=== PATIENT | male | born 1945 | race Caucasian/White ===

== ENCOUNTER → 2017-01-20 | Outpatient (CLI) | payer OTHER ==
[~2017-01-20] MED LIST: 1-ME1LIQ OR; ALPR0.5T3 PO; AMLO2.5T PO; B COTAB7 PO; BACL20TA PO; CEPH500C3 PO; CHLO25 PO; DICY10CA12 PO; DICY10CA13 PO; DOCU100T9 PO; FLUO1CRE3 TOPICAL; FOLI-30 PO; FOLI400T30 PO; FURO20TA PO; GABA300C3 PO; GABA300C5 PO; HYDR-2952 PO; HYDR-3129 PO; HYDR-3366 PO; KCL20 PO; KPHOS250 PO; MAGN400 PO; MAGN400T PO; MAGO400T2 PO; METO25TA3 PO; METO50TA PO; OMEP20TA PO; POTA1TAB4 PO; POTA99TA12 PO; PROT40TA PO; SPIR25TA PO; SUCR1TAB PO; SUCR1TAB6 PO; TRAM50TA PO; VITA1000 PO; VITA100T54 PO; VITA100T65 PO; VITACAP7 PO
== END ==
LOC: CPRE 12:49
PROVIDERS: ATTEND Neurological Surgery
DX: Z01.818 Encounter for other preprocedural examination (principal); M50.10 Cervical disc disorder with radiculopathy, unspecified cervical region; M48.02 Spinal stenosis, cervical region; M50.30 Other cervical disc degeneration, unspecified cervical region

== ENCOUNTER 2017-01-26 06:01 | Inpatient (IN) | payer OTHER, MEDICARE ==
--- NOTE | 2017-01-24 12:27 | MH ---
cc: DO Virginia CALDWELL MD, ROHIT MALIK, VINOD K. MD RAYOS, GLEN DATE OF ADMISSION: 01/26/2017 ADMITTING DIAGNOSIS: Cervical degenerative disk disease HISTORY OF PRESENT ILLNESS This is a 71-year-old male who presented to our office for evaluation of neck and low back pain. He has had neck pain on the left side more than the right. He has pain that extends into the left deltoid but not radiating into the upper extremities. He has interscapular neck pain. He has been to pain management and had interscapular injections and also lumbar injections for chronic low back pain. He states his body hurts everywhere from the nipple line down. He has had previous lumbar spine surgeries initially with Dr. Ashley from orthopedic surgery involving the L4 through S1 fusion, with pedicle screw fixation and subsequently with Dr. Crum for instrumentation failure and pseudoarthrosis. Unfortunately none of these surgeries have helped with this pain and have made his symptoms worse. His low back pain radiates into the buttocks and shoots into the medial thigh bilaterally, left more than right. He has had physical therapy and states he does exercise on his own. He has been to pain management and that does not help him. He has obtained previous opinions from other facilities, [facility] in [place] recommended cervical fusion with plate placement and another opinion recommended multilevel cervical fusion with plate placement. He presented to us requesting that we proceed with cervical spine surgery. DATA REVIEWED Reviewed CT myelogram of the cervical spine since he cannot have an MRI scan given his pacemaker. He had advanced degenerative disc disease with disc height collapse along with osteophytes more anterior than posterior with foraminal stenosis at C4-C5, C5-C6, C6-C7, levels particularly with loss of cervical lordosis and associated kyphosis. PAST MEDICAL HISTORY Significant for: 1. Chronic obstructive pulmonary disease. 2. Hypertension. 3. Obesity. 4. Pacemaker placement in 2006. 5. Left knee surgery in 2007. 6. Previous lumbar fusions at L4 to S1, initially with Dr. Ashley and subsequently with Dr. Crum. 7. Right shoulder repair in 2007. 8. History of a skin cancer, melanoma 1995 removed from his nose. CURRENT MEDICATIONS: 1. Omeprazole 20 mg p.o. daily. 2. Alprazolam 0.5 mg t.i.d. p.r.n. 3. Baclofen 20 mg p.o. b.i.d. 4. Dicyclomine 10 milligrams four times a day. 5. Colace 100 mg p.o. p.r.n. 6. Furosemide 20 milligrams p.o. daily 7. Gabapentin 300 milligrams two tablets p.o. t.i.d. 8. Magnesium oxide 400 mg 2 tablets b.i.d. 9. Metoprolol tartrate p.o. b.i.d. 10. Multivitamin. 11. Potassium p.o. daily. 12. Spironolactone 25 mg p.o. daily. 13. Sucralfate 1 gram b.i.d. 14. [place] 10 mg p.o. q6 hours p.r.n. pain. 15. Amlodipine 2.5 milligrams b.i.d. ALLERGIES: Penicillin. SOCIAL HISTORY The patient drinks six alcoholic beverages per day. Denies any substance abuse. He has smoked cigarettes in the past and quit in anticipation of surgery. FAMILY HISTORY: Noncontributory. REVIEW OF SYSTEMS: Constitutional: Denies any fever or chills. HEENT: No pharyngitis, exudates or bloody drainage from his nose. CARDIOVASCULAR: Denies any chest pain or palpitations Respiratory: He has no cough. Positive for shortness of breath. Gastrointestinal: No nausea, vomiting, or abdominal pain. Skin: No rashes or pruritus. Neurologic: No difficulty with speech or memory. Musculoskeletal: Positive for neck and low back pain. Psych. Positive for anxiety. No depression symptoms. Endocrine: No polyuria, polydipsia. Hematologic: Positive for bruising tendencies. PHYSICAL EXAMINATION Head: Normocephalic, atraumatic. He has undergone previous surgery to his nose and has a scar from a skin cancer. Neck: Supple. No carotid bruits heard on auscultation, he has a very limited movement to the right with crepitus as well as the left. Respiratory: Clear to auscultation bilaterally. Heart: Normal sinus rhythm, normal sinus to, he has a pacemaker in place. Abdomen: Soft, nontender. Positive bowel sounds. Skin: Reveals no cyanosis or erythema. Musculoskeletal: He has 5/5 strength in the upper extremities. He has a left foot drop with 0/5 left EHL strength and left ankle dorsiflexion weakness is 2/5. Neurologic: He is awake, alert, oriented. Cranial nerves II-XII grossly intact. His speech is fluent. Comprehension is good. Sensation is intact in the upper and lower extremities. IMPRESSION 71-year-old male with chronic complaints of neck and low back pain with radiation into the scapula and shoulders left more than right with some occipital headaches. He states his symptoms are severe and intolerable. He has failed conservative treatment measures with physical therapy and interventional pain management. He also relates chronic history of thoracic and chest wall pain as well as low back pain with a history of L4-S1 fusion with subsequent implant failure requiring refusion and associated foot drop. He has advanced C4-C5, C5-C6, and C6-C7 degenerative disc disease with disc osteophytes along with kyphosis and foraminal stenosis. PLAN: We have discussed the treatment options with the patient on several occasions. We have discussed continuing physical therapy and pain management and conservative treatment measures versus surgical intervention. The patient states he cannot live with his current level of discomfort. I have answered questions and will proceed with surgical intervention. Surgery would entail an anterior C4-C5, C5-C6, C6-C7 microdiskectomy with fusion and cervical plate and placement. We have discussed the procedure as well as the risks, benefits and alternatives and recovery time with the patient. We have discussed the risks involved with surgery including but not limited to bleeding, infection, muscle weakness, voice hoarseness, difficulty swallowing, heart attack, stroke blood clots, non fusion, scar tissue formation among others. The patient was advised to quit smoking at least two weeks prior to surgery and states he has done so. The patient was also instructed to stop alcohol use and this places him at an increased risk of complications and he states he hs quit drinking before and has not gone through withdrawal in the past. We have obtained clearance from his primary care physician, Dr. Caldwell, and geospatial extractor analysis, Dr. Sands. The procedure was explained using spine models in the office and all of his questions were answered to his satisfaction. We were very clear with the patient and he expressed understanding that this surgery will not likely help with his thoracic and low back pain and the goal of surgery is to address the cervical disc degeneration and associated foraminal stenosis at the stated levels. The patient understands the procedure as well as the risks involved. He is requesting that we proceed with surgical intervention. He was therefore scheduled for surgery accordingly. Dictated by: Mikhail Lopez PA-C MD JOHN Mcnair/FRANCISCO /10:37 AM /11:51 AM
[~2017-01-26] VITALS: Ht 182.9 cm; Wt 101.2 kg
[~2017-01-26 06:01] MED LIST changes: -AMLO2.5T PO; -DICY10CA12 PO; -FLUO1CRE3 TOPICAL; -FOLI-30 PO; -GABA300C5 PO; -HYDR-3366 PO; -MAGO400T2 PO; -METO25TA3 PO; -POTA1TAB4 PO; -SUCR1TAB PO; -TRAM50TA PO; -VITA1000 PO; -VITA100T54 PO; -VITACAP7 PO
[2017-01-26] MEDS ORDERED: METOPROLOL TARTRATE 25 MG TAB PO PRN (06:30)
[2017-01-26] MEDS ORDERED: SODIUM CHLOR 0.9% 1000 ML INJ 1,000 ML IV SCH ×2 (06:30→13:03)
[2017-01-26] MEDS ORDERED: POVIDONE IODINE 5% (ANTISEPSIS KIT) 4 APPLICATIONS EACH NARE PRN (06:30)
[2017-01-26] MEDS ORDERED: CHLORHEXIDINE GLUCONATE 2 % 1 PACK (2 CLOTHS) TOPICAL PRN (06:30)
[2017-01-26] MEDS ORDERED: LACTATED RINGER'S 1000 ML IV PRN (06:30)
[2017-01-26] MEDS ORDERED: INSULIN HUMAN REGULAR 1,000 UNITS/10 ML VIAL SQ PRN (06:30)
[2017-01-26] MEDS ORDERED: SODIUM CHLORID 0.9% 500 ML IV PRN (06:30)
[2017-01-26] MEDS ORDERED: VANCOMYCIN HCL 1000 MG ON-CALL/NS 250 ML IV SCH ×2 (06:30)
[2017-01-26] MEDS ORDERED: ALPR0.5T3 PO ×2 (07:10)
[2017-01-26] MEDS ORDERED: VITACAP7 PO ×2 (07:11)
[2017-01-26] MEDS ORDERED: AMLO2.5T PO ×2 (07:11)
[2017-01-26] MEDS ORDERED: BACL20TA PO ×2 (07:12)
[2017-01-26] MEDS ORDERED: FLUO1CRE3 TOPICAL ×2 (07:13)
[2017-01-26] MEDS ORDERED: DICY10CA12 PO ×2 (07:13)
[2017-01-26] MEDS ORDERED: FOLI-30 PO ×2 (07:14)
[2017-01-26] MEDS ORDERED: GABA300C5 PO ×2 (07:15)
[2017-01-26] MEDS ORDERED: FURO20TA PO ×2 (07:15)
[2017-01-26] MEDS ORDERED: MAGO400T2 PO ×2 (07:16)
[2017-01-26] MEDS ORDERED: METO25TA3 PO ×2 (07:17)
[2017-01-26] MEDS ORDERED: VITA1000 PO ×2 (07:18)
[2017-01-26] MEDS ORDERED: OMEP20TA PO ×2 (07:18)
[2017-01-26] MEDS ORDERED: VITA100T65 PO ×2 (07:21)
[2017-01-26] MEDS ORDERED: POTA1TAB4 PO ×2 (07:21)
[2017-01-26] MEDS ORDERED: SPIR25TA PO ×2 (07:22)
[2017-01-26] MEDS ORDERED: VITA100T54 PO ×2 (07:22)
[2017-01-26] MEDS ORDERED: SUCR1TAB PO ×2 (07:23)
[2017-01-26] MEDS ORDERED: TRAM50TA PO ×2 (07:23)
[2017-01-26] MEDS ORDERED: GELFOAM SIZE 100 ONE ×2 (07:35→11:08)
[2017-01-26] MEDS ORDERED: BUPIVACAINE/EPINEPHRINE 0.5% 50 ML VIAL ONE (07:35)
[2017-01-26] MEDS ORDERED: VANCOMYCIN HCL 1000 MG VIAL ONE (07:35)
[2017-01-26] MEDS ORDERED: THROMBIN (TOPICAL) 5,000 UNIT VIAL ONE ×2 (07:38→11:08)
[2017-01-26] MEDS ORDERED: MIDAZOLAM HCL 2 MG/2 ML VIAL ONE (08:14)
[2017-01-26] MEDS ORDERED: HYDROmorphone HCL PF 2 MG/ML VIAL ONE (08:14)
[2017-01-26] MEDS ORDERED: FAMOTIDINE 20 MG/2 ML VIAL ONE (08:15)
[2017-01-26] MEDS ORDERED: LACTATED RINGER'S 1000 ML INJ 1,000 ML IV ONE (12:00)
[2017-01-26] MEDS ORDERED: ONDANSETRON HCL 4 MG/2 ML VIAL IV PUSH ONE (12:00)
[2017-01-26] MEDS ORDERED: PHENYLEPH/NS 1000 MCG/10 ML SYR IV ONE (12:00)
[2017-01-26] MEDS ORDERED: PROPOFOL 200 MG/20 ML AMP IV ONE (12:00)
[2017-01-26] MEDS ORDERED: NORMOSOL R INJ 1,000 ML IV ONE (12:00)
[2017-01-26] MEDS ORDERED: ACETAMINOPHEN 1000 MG/100 ML VIAL IV ONE (12:00)
[2017-01-26] MEDS ORDERED: ePHEDrine/NS 25 MG/5 ML SYR IV ONE (12:00)
[2017-01-26] MEDS ORDERED: ACETAMINOPHEN 325 MG TAB PO PRN (13:15)
[2017-01-26] MEDS ORDERED: CALCIUM GLUCONATE INJ 1 GM in SODIUM CHLORIDE 0.9% INJ 100 ML IV PRN (13:15)
[2017-01-26] MEDS ORDERED: MAGNESIUM SULFATE INJ 2 GM in SODIUM CHLORIDE 0.9% INJ 100 ML IV PRN (13:15)
[2017-01-26] MEDS ORDERED: ALUMINUM/MAGNESIUM/SIMETH 30 ML CUP PO PRN (13:15)
[2017-01-26] MEDS ORDERED: MORPHINE SULFATE 4 MG/ML INJ IV PRN (13:15)
[2017-01-26] MEDS ORDERED: POTASSIUM CHLOR 20 MEQ PREMIX 100 ML IV PRN (13:15)
[2017-01-26] MEDS ORDERED: CYCLOBENZAPRINE HCL 10 MG TAB PO PRN (13:15)
[2017-01-26] MEDS ORDERED: ONDANSETRON HCL 4 MG/2 ML VIAL IV PRN (13:15)
[2017-01-26] MEDS ORDERED: RESP: ALBUTEROL 2.5 MG/3 ML NEB (PRN) NEB (13:15)
[2017-01-26] MEDS ORDERED: cloNIDine HCL 0.1 MG TAB PO PRN (13:15)
[2017-01-26] MEDS ORDERED: SODIUM CHLORIDE 0.9% FLUSH 10 ML FLUSH IV FLUSH PRN (13:15)
[2017-01-26] MEDS ORDERED: ZOLPIDEM TARTRATE 5 MG TAB PO PRN (13:15)
[2017-01-26] MEDS ORDERED: MAGNESIUM HYDROXIDE SUSP 30 ML CUP PO PRN (13:15)
[2017-01-26] MEDS ORDERED: MENTHOL LOZENGE BUCCAL PRN (13:15)
[2017-01-26] MEDS ORDERED: PROMETHAZINE INJ 25 MG/ML VIAL IM PRN (13:15)
[2017-01-26] MEDS ORDERED: DO NOT ADM ANY ANTICOAGULANT DRUGS PRN (13:20)
[2017-01-26] MEDS ORDERED: *ONDANSETRON 4 MG VIAL PERIprocedural Use ONLY ONE (13:54)
[2017-01-26] MEDS ORDERED: *LABETALOL HCL 100 MG/20 ML VIAL PERIprocedural Use ONLY ONE (13:54)
--- NOTE | 2017-01-26 14:19 | PD.OP ---
Do Shanelle MD Operative Report Date of Surgery: Jan 26, 2017 Preoperative Diagnosis: Cervical C4-5, C5-6 and C6-7 severe degenerative disc disease with disc height collapse and associated disc osteophyte complex with foraminal stenosis; intractable neck pain with poly-radiculopathy Postoperative Diagnosis: Same Procedure: Anterior cervical C4-5, C5-6 and C6-7 microdiscectomy with interbody fusion; anterior C4-7 cervical plate placement; C4-5, C5-6 and C6-7 interbody cage placement; microsurgical technique Anesthesia: Gen. endotracheal by Jennifer Cox Surgeon: Lit Youssef M.D. Orthotist Prosthetist(s): Saadia Vazquez Operation and Findings: Following administration of general endotracheal anesthesia, the patient received a gram of vancomycin and Decadron 10 mg intravenously. Anesthesiologist noted polyps in the vocal cords during the intubation. Sequential compression devices were placed in supine position on a Nikolay table and all pressure points adequately padded. The head secured in a donut and anterior cervical region then shaved and prepped with Chloraprep and sterilely draped with Ioban along with the usual sterile draping. A transverse skin incision on the left side of the neck was then made after infiltrating the skin with 0.5% Marcaine with epinephrine solution extending down through the platysma. At the anterior border of the sternocleidomastoid further dissection was undertaken developing a plane between the carotid sheath laterally and the trachea esophagus medially. The prevertebral fascia was exposed and dissected out. The medial attachments of the longus colli muscles were detached and a self-retaining retractor used for exposure. The C4-5 disc space was localized with a marking the disc space and using lateral fluoroscopy. [place] distraction screws 14 mm length were placed in the C4, C6 and C7 bodies for interbody distraction and exposure. There was significant disc degeneration with disc height collapse and anterior osteophytes noted at the C4-5, C5-6 and C6-7 levels level and the osteophytes were resected with a Le[place]ell and annulus incised with a 15 blade and further dissection undertaken using microtechnique with microscope magnification. Diskectomy was undertaken with pituitaries and the endplates were also decorticated with curettes and drill bit. And more posteriorly there was disk osteophyte complex compressing the thecal sac along with a significant uncovertebral joint hypertrophy with foraminal stenosis which was decompressed along with removal of the posterior longitudinal ligaments at all levels. The foramen were decompressed bilaterally using a Kerrison's and palpation with a nerve hook, the exiting nerve roots were felt to be free. The area was then copiously irrigated. I then placed a Peek cages packed with local autograft bone at the C4-5, C5-6, and C6-7 interspaces under fluoroscopy guidance. [place] distraction pins were removed and the holes plugged with Gelfoam for hemostasis. In order to facilitate the fusion and provide stabilization, a Precision spine cervical plate was then placed with two 16 mm variable angle screws in the C4 body, one 14 mm variable angle screw in the C5 and C6 bodies and two 16 mm fixed angle screws in the C7 body. The plate screw locking mechanism was then engaged. AP and lateral fluoroscopy confirmed good placement of the construct and the retractor was then removed. Muscular bleeding points were cauterized with bipolar cautery and Gelfoam was then also used for hemostasis which was removed. The platysma was then approximated using 3-0 Vicryl interrupted stitches and 3-0 Vicryl subcuticular stitch also placed in an interrupted fashion, and final skin closure was with Mastisol and Steri-Strips. Sterile dressing was then applied. The neck immobilized in a [employer] [facility] collar. The patient was then extubated and taken to the recovery room. There are no intraoperative complications and all sponge and needle counts were correct at the end of procedure. Estimated blood loss was about 50 cc. The patient did undergo intraoperative neurologic monitoring which remained stable throughout the surgery. Lit Youssef MD Jan 26, 2017 14:19
[2017-01-26 14:20] LABS: BASOPHIL % 0.1 % (0.0-2.0); EOSINOPHIL % 0.1 % (0.0-4.0); HEMATOCRIT 46.3 % (39.0-51.0); HEMO FLAGS DIFF FINAL; LYMPH % 12.6 % (9.0-44.0); LYMPHOCYTE # 0.9 TH/MM3 (1.0-4.8); MEAN CELL VOLUME 94.9 FL (80.0-100.0); MEAN CORPUSCULAR HEMOGLOBIN 31.4 PG (27.0-34.0); MEAN CORPUSCULAR HGB CONC 33.1 % (32.0-36.0); MONO % 1.3 % (0.0-8.0); NEUT % 85.9 % (16.0-70.0); PLATELET COUNT 151 TH/MM3 (150-450); RED BLOOD COUNT 4.88 MIL/MM3 (4.50-5.90); RED CELL DISTRIBUTION WIDTH 13.4 % (11.6-17.2)
--- NOTE | 2017-01-26 15:02 | RADRPT ---
EXAM DATE/TIME: 01/26/2017 09:06 [facility] COMPARISON: No previous studies available for comparison. INDICATIONS : Cervical spine C4-7 ACDF. OR. MEDICAL HISTORY : None. SURGICAL HISTORY : None. ENCOUNTER: Initial ACUITY: 1 day PAIN SCORE: Non-responsive. LOCATION: Cervical spine C4-7 FINDINGS: C-arm matrix views reveal anterior cervical fusion plate in place level of C4-7 with intervertebral d isc grafts at these levels. Alignment appears normal although not optimally visualized in the lateral projection due to overlying shoulder soft tissue density. CONCLUSION: Anterior cervical fusion C4-7 Faraz Desouza MD on January 26, 2017 at 14:58 Board Certified Radiologist. This report was verified electronically.
[2017-01-26 15:08] LABS: BICARBONATE 29.3 MEQ/L (21.0-32.0); POTASSIUM 3.8 MEQ/L (3.5-5.1)
[2017-01-26] MEDS: ACETAMINOPHEN/HYDROcodone 325 MG/10 MG TAB PO PRN ×2 (15:16→21:20)
--- NOTE | 2017-01-26 15:28 | PD.CONS ---
HPI Service [facility] Hospitalists Consult Requested By Dr. Youssef Reason for Consult Medical management Primary Care Physician Reed Timmons Do, MD Diagnoses: (1) Hypertension (2) Tobacco abuse (3) COPD (chronic obstructive pulmonary disease) (4) Cervical disc disorder with radiculopathy (5) Degenerative cervical spinal stenosis (6) Degenerative disc disease, cervical History of Present Illness The patient is a 71 year old male seen in PACU following C4-5, C5-6, and C6-7 microdiscectomy with interbody fusion; anterior C4-7 cervical plate placement; C4-5, C5-6 and C6-7 interbody cage placement. Hospitalist consultation was requested for medical management. Patient is a long-time smoker and has history of COPD and hypertension. States that his neck is not painful at this time. Has some numbness in the fingers of the left hand. Denies chest pain, dyspnea, nausea, vomiting. Review of Systems Constitutional: DENIES: Fever, Chills, Night Sweats Eyes: DENIES: Blurred vision, Vision loss Ears, nose, mouth, throat: DENIES: Hearing loss Respiratory: DENIES: Cough, Wheezing, Sputum production, Shortness of breath Cardiovascular: DENIES: Chest pain, Palpitations, Dyspnea on Exertion, Lower Extremity Edema Gastrointestinal: DENIES: Abdominal pain, Constipation, Diarrhea, Nausea, Vomiting Genitourinary: DENIES: Urinary frequency, Urinary incontinence, Urgency, Hematuria, Dysuria, Nocturia Musculoskeletal: DENIES: Joint pain, Muscle aches Integumentary: DENIES: Pruritus, Rash Hematologic/lymphatic: DENIES: Bruising Neurologic: COMPLAINS OF: Paresthesias (fingers of left hand), DENIES: Headache Past Family Social History Allergies: Coded Allergies: penicillin G (Unverified Allergy, Severe, RED BUMPS, 01/26/17) Past Medical History Hypertension COPD Past Surgical History Left knee surgery 2008 Lumbar spine surgery x3 Right shoulder surgery 2008 Skin cancer (melanoma) removed from nose 1994 Pacemaker placement 2007 Reported Medications Omeprazole 20mg daily Xanax 0.5mg TID prn Baclofen 20mg BID Dicyclomine 10mg QID Colace 100mg prn Furosemide 20mg daily Gabapentin 600mg TID Magnesium oxide 800mg BID Metoprolol Multivitamin Potassium Spironolactone 25mg daily Sucralfate 1g BID [place] 10mg q6h prn Amlodipine 2.5mg BID Family History Throat cancer Social History Cigarette smoker for 57 years. Quit in anticipation of surgery. Drinks 6 cocktails daily. Denies illicit drug use. Physical Exam Vital Signs Vital Signs Date Time Temp Pulse Resp B/P (MAP) Pulse Ox O2 Delivery O2 Flow Rate FiO2 01/26/17 14:30 66 17 158/84 (108) 93 Nasal Cannula 2 01/26/17 14:15 67 13 159/79 (105) 94 Nasal Cannula 2 01/26/17 14:00 64 16 158/74 (102) 94 Nasal Cannula 2 01/26/17 13:45 69 15 175/81 (112) 95 Nasal Cannula 2 01/26/17 13:30 71 14 166/80 (108) 96 Nasal Cannula 2 01/26/17 13:15 98.4 72 16 174/88 (116) 98 Nasal Cannula 2 01/26/17 07:00 98.0 58 20 150/80 (103) 97 Physical Exam GENERAL: Obese elderly male in no acute distress. In a cervical collar. HEENT: Normocephalic, atraumatic. Pupils equal, round and reactive. Extraocular movements intact. No scleral icterus. No injection or drainage. Oropharynx is clear. Mucous membranes are moist. CARDIOVASCULAR: Regular rate and rhythm without murmurs, gallops, or rubs. RESPIRATORY: Clear to auscultation. No wheezes, rales, or rhonchi. Breathing is non-labored. GASTROINTESTINAL: Abdomen soft, non-tender, nondistended. EXTREMITIES: No lower extremity edema. No calf tenderness. VAN hose. PSYCH: Alert and oriented x 3. Laboratory Laboratory Tests Test 01/26/17 13:55 White Blood Count 7.0 Red Blood Count 4.88 Hemoglobin 15.3 Hematocrit 46.3 Mean Corpuscular Volume 94.9 Mean Corpuscular Hemoglobin 31.4 Mean Corpuscular Hemoglobin Concent 33.1 Red Cell Distribution Width 13.4 Platelet Count 151 Mean Platelet Volume 8.5 Neutrophils (%) (Auto) 85.9 Lymphocytes (%) (Auto) 12.6 Monocytes (%) (Auto) 1.3 Eosinophils (%) (Auto) 0.1 Basophils (%) (Auto) 0.1 Neutrophils # (Auto) 6.0 Lymphocytes # (Auto) 0.9 Monocytes # (Auto) 0.1 Eosinophils # (Auto) 0.0 Basophils # (Auto) 0.0 CBC Comment DIFF FINAL Differential Comment Blood Urea Nitrogen 9 Creatinine 0.92 Random Glucose 141 Calcium Level 8.1 Sodium Level 142 Potassium Level 3.8 Chloride Level 104 Carbon Dioxide Level 29.3 Anion Gap 9 Estimat Glomerular Filtration Rate 81 Result Diagram: 01/26/17 1355 01/26/17 1355 Imaging Last Impressions Cervical Spine X-Ray 01/26/17 0000 Signed Impressions: Service Date/Time: Thursday, January 26, 2017 09:06 - CONCLUSION: Anterior cervical fusion C4-7 Faraz Desouza MD Assessment and Plan Assessment and Plan 1. Degenerative disc disease: S/P surgical intervention by neurosurgery. Continue post-op care per neurosurgery. 2. Hypertension: Continue metoprolol. 3. COPD: Supplemental oxygen as needed. Albuterol nebs as needed. 4. Tobacco abuse: Counselled to quit smoking. 5. Alcohol use: Monitor for signs of withdrawal. Soren Madsen MD Jan 26, 2017 15:28
[2017-01-26] MEDS: ALPRAZolam 0.5 MG TAB PO PRN (15:47)
[2017-01-26] MEDS ORDERED: ACETAMINOPHEN/HYDROcodone 325 MG/10 MG TAB PO PRN (16:00)
[2017-01-26] MEDS: DEXAMETHASONE SOD PHOS 4 MG/ML VIAL IV SCH ×2 (17:00→22:37)
[2017-01-26] MEDS: GABAPENTIN 300 MG CAP PO SCH (18:00)
[2017-01-26] MEDS: DICYCLOMINE HCL 10 MG CAP PO SCH ×2 (18:00→21:20)
[2017-01-26] MEDS: DOCUSATE SODIUM 100 MG CAP PO SCH (20:09)
[2017-01-26] MEDS: amLODIPine BESYLATE 5 MG TAB PO SCH (20:09)
[2017-01-26] MEDS ORDERED: FLUOROURACIL TOPICAL SCH ×2 (21:00)
[2017-01-26] MEDS: METOPROLOL TARTRATE 25 MG TAB PO SCH (21:00)
[2017-01-26] MEDS: MAGNESIUM OXIDE 400 MG TAB PO SCH (21:19)
[2017-01-26] MEDS: VANCOMYCIN INJ 1,000 MG in SODIUM CHLOR 0.9% 250 ML INJ 250 ML IV SCH (21:19)
[2017-01-26] MEDS: SODIUM CHLORIDE 0.9% FLUSH 10 ML FLUSH IV FLUSH SCH (21:20)
[2017-01-26] MEDS: SUCRALFATE 1 GM TAB PO SCH (21:20)
[2017-01-26] MEDS: BACLOFEN 20 MG TAB PO SCH (21:20)
[2017-01-26 22:39] VITALS: O2SAT 98
[2017-01-27] VITALS: BP 162/70; PULSE 80; RESP 16; TEMP 98; O2SAT 92
[2017-01-27] MEDS: DEXAMETHASONE SOD PHOS 4 MG/ML VIAL IV SCH (05:40)
[2017-01-27] MEDS: ACETAMINOPHEN/HYDROcodone 325 MG/10 MG TAB PO PRN (05:48)
[2017-01-27 07:48] LABS: BICARBONATE 27.8 MEQ/L (21.0-32.0)
[2017-01-27 07:59] VITALS: BP 156/75; PULSE 70; RESP 18; TEMP 97.6; O2SAT 91
[2017-01-27 08:12] LABS: AUTOMATED NEUTROPHIL # 9.5 TH/MM3 (1.8-7.7); BASOPHIL % 0.4 % (0.0-2.0); EOSINOPHIL % 0.2 % (0.0-4.0); HEMATOCRIT 53.3 % (39.0-51.0); HEMO FLAGS DIFF FINAL; LYMPH % 7.5 % (9.0-44.0); LYMPHOCYTE # 0.8 TH/MM3 (1.0-4.8); MEAN CELL VOLUME 95.9 FL (80.0-100.0); MEAN CORPUSCULAR HEMOGLOBIN 31.9 PG (27.0-34.0); MEAN CORPUSCULAR HGB CONC 33.3 % (32.0-36.0); MONO % 2.9 % (0.0-8.0); PLATELET COUNT 119 TH/MM3 (150-450); RED BLOOD COUNT 5.55 MIL/MM3 (4.50-5.90); RED CELL DISTRIBUTION WIDTH 13.5 % (11.6-17.2); WHITE BLOOD COUNT 10.7 TH/MM3 (4.0-11.0)
[2017-01-27] MEDS: amLODIPine BESYLATE 5 MG TAB PO SCH (08:39)
[2017-01-27] MEDS: METOPROLOL TARTRATE 25 MG TAB PO SCH (08:39)
[2017-01-27] MEDS: ALPRAZolam 0.5 MG TAB PO PRN (08:39)
[2017-01-27] MEDS: SUCRALFATE 1 GM TAB PO SCH (08:39)
[2017-01-27] MEDS: GABAPENTIN 300 MG CAP PO SCH ×2 (08:39→13:00)
[2017-01-27] MEDS: DOCUSATE SODIUM 100 MG CAP PO SCH (08:40)
[2017-01-27] MEDS: MAGNESIUM OXIDE 400 MG TAB PO SCH (08:40)
[2017-01-27] MEDS: DICYCLOMINE HCL 10 MG CAP PO SCH ×2 (08:40→13:00)
[2017-01-27] MEDS: BACLOFEN 20 MG TAB PO SCH (08:40)
[2017-01-27] MEDS: SODIUM CHLORIDE 0.9% FLUSH 10 ML FLUSH IV FLUSH SCH (08:43)
[2017-01-27] MEDS: VANCOMYCIN INJ 1,000 MG in SODIUM CHLOR 0.9% 250 ML INJ 250 ML IV SCH (08:43)
--- NOTE | 2017-01-27 08:59 | HHI.NSPN ---
(Mikhail Lopez) History Chief Complaint: mild neck pain. (Mikhail Lopez) Interval History Pt s/p C4/C5, C5/C6 and C6/C7 ACF on 01/26/17. He has mild neck discomfort. No radiculopathy in UEs. He has been ambulating in room per RN. He is voiding well. KJ drain in place. (Mikhail Lopez) Review of Systems General: Negative for: fever, chills, insomnia Respiratory: Negative for: shortness of breath, cough, sputum Cardiovascular: Negative for: chest pain Gastrointestinal: Negative for: nausea, vomitting, diarrhea, constipation ( Mikhail Lopez) Exam Results Vital Signs Date Time Temp Pulse Resp B/P (MAP) Pulse Ox O2 Delivery O2 Flow Rate FiO2 01/27/17 07:59 97.6 70 18 156/75 (102) 91 01/26/17 22:39 Nasal Cannula 2.00 Intake and Output 01/27/17 01/27/17 01/28/17 08:00 16:00 00:00 Intake Total 480 ml Output Total 825 ml Balance -345 ml (Mikhail Lopez) Physical Examination Resp: CTA bilaterally Heart: NSR no murmurs Abd: Soft positive bs Skin: No cyanosis or erythema. KJ drain in place. Muscle: Moves upper extremities with good strength. Left foot drop. Neuro: Pt awake and alert. Follows commands well. Speech clear and appropriate. (Mikhail Lopez) Lab, Micro, Other Results Last Impressions Cervical Spine X-Ray 01/26/17 0000 Signed Impressions: Service Date/Time: Thursday, January 26, 2017 09:06 - CONCLUSION: Anterior cervical fusion C4-7 Faraz Desouza MD Laboratory Tests Test 01/26/17 13:55 01/27/17 05:30 White Blood Count 7.0 TH/MM3 10.7 TH/MM3 Red Blood Count 4.88 MIL/MM3 5.55 MIL/MM3 Hemoglobin 15.3 GM/DL 17.7 GM/DL Hematocrit 46.3 % 53.3 % Mean Corpuscular Volume 94.9 FL 95.9 FL Mean Corpuscular Hemoglobin 31.4 PG 31.9 PG Mean Corpuscular Hemoglobin Concent 33.1 % 33.3 % Red Cell Distribution Width 13.4 % 13.5 % Platelet Count 151 TH/MM3 119 TH/MM3 Mean Platelet Volume 8.5 FL 10.2 FL Neutrophils (%) (Auto) 85.9 % 89.0 % Lymphocytes (%) (Auto) 12.6 % 7.5 % Monocytes (%) (Auto) 1.3 % 2.9 % Eosinophils (%) (Auto) 0.1 % 0.2 % Basophils (%) (Auto) 0.1 % 0.4 % Neutrophils # (Auto) 6.0 TH/MM3 9.5 TH/MM3 Lymphocytes # (Auto) 0.9 TH/MM3 0.8 TH/MM3 Monocytes # (Auto) 0.1 TH/MM3 0.3 TH/MM3 Eosinophils # (Auto) 0.0 TH/MM3 0.0 TH/MM3 Basophils # (Auto) 0.0 TH/MM3 0.0 TH/MM3 CBC Comment DIFF FINAL DIFF FINAL Differential Comment Blood Urea Nitrogen 9 MG/DL 9 MG/DL Creatinine 0.92 MG/DL 0.77 MG/DL Random Glucose 141 MG/DL 132 MG/DL Calcium Level 8.1 MG/DL 7.8 MG/DL Sodium Level 142 MEQ/L 142 MEQ/L Potassium Level 3.8 MEQ/L 5.0 MEQ/L Chloride Level 104 MEQ/L 104 MEQ/L Carbon Dioxide Level 29.3 MEQ/L 27.8 MEQ/L Anion Gap 9 MEQ/L 10 MEQ/L Estimat Glomerular Filtration Rate 81 ML/MIN 100 ML/MIN Hematology Comments (Mikhail Lopez) Medical Decision Making Impression and Plan A: 71 y/o M s/p C4/C5, C5/C6, and C6/C7 ACF with interbody cages and plate placement. P: D/C KJ drain. Continue to ambulate D/C later today if no complications (Mikhail Lopez) Attending Statement The exam, history, and the medical decision-making described in the above note were completed with the assistance of the mid-level provider. I reviewed and agree with the findings presented. I attest that I had a [id number] encounter with the patient on the same day, and personally performed and documented my assessment and findings in the medical record. (Lit Youssef MD) Mikhail Lopez Jan 27, 2017 08:59 Lit Youssef MD Jan 27, 2017 13:10
[2017-01-27] MEDS ORDERED: POTASSIUM CHLORIDE 20 MEQ CONTROLLED RELEASE TAB PO SCH (09:00)
[2017-01-27] MEDS ORDERED: PANTOPRAZOLE SOD 20 MG DELAYED RELEASE TAB PO SCH (09:00)
[2017-01-27] MEDS ORDERED: NON-FORMULARY DRUG (B-Complex Vitamins (B Complex) 1 CAP) PO SCH (09:00)
[2017-01-27] MEDS ORDERED: [UNRECOGNIZED DRUG - OTHER] PO SCH (09:00)
[2017-01-27] MEDS ORDERED: FUROSEMIDE 20 MG TAB PO SCH (09:00)
[2017-01-27] MEDS ORDERED: VITAMIN B COMPLEX/VIT C TAB PO SCH (09:00)
[2017-01-27] MEDS ORDERED: CHOLECALCIFEROL (VIT D3) 1000 UNIT TAB PO SCH (09:00)
[2017-01-27] MEDS ORDERED: SPIRONOLACTONE 25 MG TAB PO SCH (09:00)
[2017-01-27] MEDS ORDERED: THIAMINE HCL 100 MG TAB PO SCH (09:00)
[2017-01-27] MEDS ORDERED: PT:POTASSIUM 99 MG PO SCH (09:00)
[2017-01-27] MEDS ORDERED: VITAMIN E 400 UNIT CAP PO SCH (09:00)
[2017-01-27] MEDS ORDERED: [UNRECOGNIZED DRUG - OTHER] PO SCH (09:00)
[2017-01-27 10:20] VITALS: O2SAT 93
[2017-01-27 11:33] VITALS: BP 146/70; PULSE 70; RESP 18; TEMP 97.8; O2SAT 92
--- NOTE | 2017-01-27 14:02 | HHI.PR ---
Subjective Remarks Follow up hypertension. Patient feels better today. Being discharged home. No chest pain or dyspnea. Objective Vitals Vital Signs Date Time Temp Pulse Resp B/P (MAP) Pulse Ox O2 Delivery O2 Flow Rate FiO2 01/27/17 11:33 97.8 70 18 146/70 (95) 92 01/27/17 10:20 93 01/27/17 07:59 97.6 70 18 156/75 (102) 91 01/27/17 06:54 20 01/27/17 00:00 98.0 80 16 162/70 (100) 92 01/26/17 22:39 98 Nasal Cannula 2.00 01/26/17 18:00 98.2 65 16 151/72 (98) 97 Nasal Cannula 2 01/26/17 17:00 66 12 143/68 (93) 97 Nasal Cannula 2 01/26/17 16:00 67 16 164/76 (105) 98 Nasal Cannula 2 01/26/17 15:00 74 15 168/85 (112) 97 Nasal Cannula 2 01/26/17 14:30 66 17 158/84 (108) 93 Nasal Cannula 2 01/26/17 14:15 67 13 159/79 (105) 94 Nasal Cannula 2 01/26/17 14:00 64 16 158/74 (102) 94 Nasal Cannula 2 I/O 01/26/17 01/26/17 01/26/17 01/27/17 01/27/17 01/27/17 07:00 15:00 23:00 07:00 15:00 23:00 Intake Total 2400 ml 780 ml 480 ml Output Total 25 ml 2100 ml 825 ml Balance 2375 ml -1320 ml -345 ml Intake Oral 780 ml 480 ml Other 2400 ml Output Urine Total 2050 ml 800 ml Drainage Total 25 ml 50 ml 25 ml # Bowel Movements 0 0 Result Diagram: 01/27/17 0530 01/27/17 0530 Imaging Last Impressions Cervical Spine X-Ray 01/26/17 0000 Signed Impressions: Service Date/Time: Thursday, January 26, 2017 09:06 - CONCLUSION: Anterior cervical fusion C4-7 Faraz Desouza MD Objective Remarks General: No acute distress. In a cervical collar. Heart: Regular rate and rhythm. No murmur. Lungs: Clear to auscultation bilaterally. No wheezes, rales, or rhonchi. Breathing is nonlabored. Abdomen: Soft, nontender, nondistended. Extremities: No lower extremity edema. Psych: Alert and oriented. Urinary Catheter: No Vascular Central Line Catheter: No A/P Problem List: (1) Hypertension ICD Code: I10 - Essential (primary) hypertension (2) Tobacco abuse ICD Code: Z72.0 - Tobacco use (3) COPD (chronic obstructive pulmonary disease) ICD Code: J44.9 - Chronic obstructive pulmonary disease, unspecified (4) Cervical disc disorder with radiculopathy ICD Code: M50.10 - Cervical disc disorder with radiculopathy, unspecified cervical region Status: Acute (5) Degenerative cervical spinal stenosis ICD Code: M48.02 - Spinal stenosis, cervical region Status: Acute (6) Degenerative disc disease, cervical ICD Code: M50.30 - Other cervical disc degeneration, unspecified cervical region Status: Acute Assessment and Plan 1. Degenerative disc disease: Management per neurosurgery. 2. Hypertension: Continue metoprolol. 3. COPD: Supplemental oxygen as needed. Albuterol nebs as needed. 4. Tobacco abuse: Counselled to quit smoking. 5. Alcohol use: Monitor for signs of withdrawal. Discharge Planning Discharge home today per neurosurgery. Soren Madsen MD Jan 27, 2017 14:02
[2017-01-27] MEDS ORDERED: HYDR-3366 PO ×2 (14:03)
[2017-02-17] MEDS ORDERED: HYDR-3366 PO (08:28)
[2017-03-12] MEDS ORDERED: HYDR-3366 PO (12:12)
== END 2017-01-27 15:51 | disposition home or self-care (01) | DRG 473 ==
LOC: HSDC 06:01 → HSDI 13:08 → OBSVTOIN 17:12 → N06B 19:19
PROVIDERS: ADMIT Neurological Surgery; ATTEND Neurological Surgery
PROC: 0RT30ZZ Resection of Cervical Vertebral Disc, Open Approach (ICD-10-PCS; 2017-01-26)
PROC: 01N10ZZ Release Cervical Nerve, Open Approach (ICD-10-PCS; 2017-01-26)
PROC: 0RG20A0 Fusion of 2 or more Cervical Vertebral Joints with Interbody Fusion Device, Anterior Approach, Anterior Column, Open Approach (ICD-10-PCS; principal; 2017-01-26 08:37)
DX: M50.121 Cervical disc disorder at C4-C5 level with radiculopathy (principal); J44.9 Chronic obstructive pulmonary disease, unspecified; M48.02 Spinal stenosis, cervical region; I10 Essential (primary) hypertension; M50.30 Other cervical disc degeneration, unspecified cervical region; M21.372 Foot drop, left foot; M25.78 Osteophyte, vertebrae; G89.29 Other chronic pain; M40.202 Unspecified kyphosis, cervical region; Z87.891 Personal history of nicotine dependence; Z95.0 Presence of cardiac pacemaker; Z85.820 Personal history of malignant melanoma of skin; E66.9 Obesity, unspecified
CPT/HCPCS: 72040; 76000; 80048; 85025; C1713; J0131; J1100; J1170; J2250; J2370; J2405; J3010; J3370; J7050; J7120; L0150; L0172

== ENCOUNTER 2017-06-14 07:18 | Day surgery (SDC) | payer OTHER ==
[~2017-06-14] VITALS: Ht 180.3 cm; Wt 93.0 kg
[~2017-06-14 07:18] MED LIST changes: -1-ME1LIQ OR; +AMLO2.5T PO; -B COTAB7 PO; -CEPH500C3 PO; -CHLO25 PO; +DICY10CA12 PO; -DICY10CA13 PO; -DOCU100T9 PO; +FLUO1CRE3 TOPICAL; +FOLI-30 PO; -FOLI400T30 PO; -GABA300C3 PO; +GABA300C5 PO; -HYDR-2952 PO; -HYDR-3129 PO; +HYDR-3366 PO; -KCL20 PO; -KPHOS250 PO; -MAGN400 PO; -MAGN400T PO; +MAGO400T2 PO; +METO25TA3 PO; -METO50TA PO; -OMEP20TA PO; +OMEP20TA93 PO; +POTA1TAB4 PO; -POTA99TA12 PO; -PROT40TA PO; +SUCR1TAB PO; -SUCR1TAB6 PO; +VITA1000 PO; +VITA100T54 PO; +VITACAP7 PO
[2017-06-14 07:35] VITALS: BP 139/80; PULSE 65; RESP 20; TEMP 97.9; O2SAT 90
[2017-06-14] MEDS ORDERED: LACTATED RINGER'S 1000 ML INJ 1,000 ML IV SCH (07:45)
[2017-06-14] MEDS ORDERED: DIAZEPAM 5 MG TAB PO SCH (07:45)
[2017-06-14 08:23] LABS: AUTOMATED NEUTROPHIL # 2.4 TH/MM3 (1.8-7.7); BASOPHIL % 0.7 % (0.0-2.0); EOSINOPHIL # 0.1 TH/MM3 (0-0.4); EOSINOPHIL % 1.9 % (0.0-4.0); HEMATOCRIT 46.4 % (39.0-51.0); HEMOGLOBIN 16.1 GM/DL (13.0-17.0); LYMPH % 32.7 % (9.0-44.0); LYMPHOCYTE # 1.6 TH/MM3 (1.0-4.8); MEAN CELL VOLUME 95.1 FL (80.0-100.0); MEAN CORPUSCULAR HEMOGLOBIN 32.9 PG (27.0-34.0); MEAN CORPUSCULAR HGB CONC 34.6 % (32.0-36.0); MEAN PLATELET VOLUME 9.2 FL (7.0-11.0); MONO % 13.6 % (0.0-8.0); MONOCYTE # 0.7 TH/MM3 (0-0.9); NEUT % 51.1 % (16.0-70.0); PLATELET COUNT 135 TH/MM3 (150-450); RED BLOOD COUNT 4.88 MIL/MM3 (4.50-5.90); RED CELL DISTRIBUTION WIDTH 14.7 % (11.6-17.2); WHITE BLOOD COUNT 4.8 TH/MM3 (4.0-11.0)
[2017-06-14 08:32] LABS: PROTHROMBIN TIME - PATIENT 10.2 SEC (9.8-11.6)
[2017-06-14 08:45] LABS: BICARBONATE 31.6 MEQ/L (21.0-32.0); CALCIUM 8.4 MG/DL (8.5-10.1); CREATININE 0.82 MG/DL (0.60-1.30)
[2017-06-14 10:20] VITALS: BP 138/69; PULSE 67; PULSE 68; RESP 18; RESP 20; TEMP 97.7; O2SAT 93; O2SAT 94
--- NOTE | 2017-06-14 10:30 | RADRPT ---
EXAM DATE/TIME: 06/14/2017 08:24 [facility] COMPARISON: No previous studies available for comparison. INDICATIONS : Patient present with pain in the lower back in need of a myelogram. MEDICAL HISTORY : HTN COPD Obesity Skin Cancer SURGICAL HISTORY : Pacemaker Left Knee Lumbar Fusion Right Shoulder Back Surgery ENCOUNTER: Initial ACUITY: > 1 year PAIN SCORE: 8/10 LOCATION: Left Side LUMBAR PUNCTURE TIME: 0935 hours FLUORO TIME: 2.5 minutes IMAGE SERIES: 6 CONTRAST: 20 cc Omnipaque (iohexol) 180 ACCESS LEVEL: L2-3 minutes PROCEDURE : 1. Fluoroscopic guided lumbar puncture. 2. Lumbar myelogram. The risks, benefits and alternatives to the procedure were explained and verbal and written consent w as obtained. The site was prepped in sterile fashion. Full sterile technique was used, including ca p, mask, sterile gloves and gown and a large sterile sheet. Hand hygiene and 2% chlorhexidine and/or betadine/alcohol prep was utilized per protocol for cutaneous antisepsis. The skin and subcutaneous tissues were infiltrated with local anesthetic solution. With fluoroscopic guidance the lumbar thecal sac was punctured at level above and a diagnostic quanti ty of contrast is present in the subarachnoid space. Radiographs were obtained of the lumbar spine. The patient tolerated procedure well and there were no complications. CT scan is to be performed for further evaluation. CONCLUSION: Uncomplicated lumbar myelogram as above. CT scan is to be performed for further evaluation. Dionisio Hogan MD on June 14, 2017 at 10:27 Board Certified Radiologist. This report was verified electronically.
--- NOTE | 2017-06-14 10:33 | PD.RAD ---
Post Procedure Progress Note Pre Procedure Diagnosis: (1) Chronic radicular pain of lower back Post Procedure Diagnosis: (1) Chronic radicular pain of lower back Procedure Date: Jun 14, 2017 Supervising Radiologist: Dionisio Hogan Proceduralist/Assist: Julien Giraldo, RT(R), Светлана Bautista RT(R) Anesthesia: Local Plan of Activity Patient to Unit: ROPU Patient Condition: Good See PACS Report for procedural detail/treatment Spinal Procedure Myelogram L3-L4 Puncture Time: 09:35 Dionisio Hogan MD Jun 14, 2017 10:33
--- NOTE | 2017-06-14 10:35 | RADRPT ---
EXAM DATE/TIME: 06/14/2017 10:03 [facility] COMPARISON: No previous studies available for comparison. INDICATIONS : Post myelogram RADIATION DOSE: 35.12 CTDIvol (mGy) CT of the lumbar spine was performed post myelogram. MEDICAL HISTORY : None SURGICAL HISTORY : Lumbar fusion ENCOUNTER: Initial ACUITY: 1 day PAIN SCALE: 2/10 LOCATION: Lumbar spine TECHNIQUE: Volumetric scanning of the lumbar spine was performed. Multiplanar reconstructions in the sagittal, coronal and oblique axial planes were performed. Using automated exposure control and adjustment of the mA and/or kV according to patient size, radiation dose was kept as low as reasonably achievable t o obtain optimal diagnostic quality images. DICOM format image data is available electronically for review and comparison. FINDINGS: Sagittal and coronal reformats demonstrate adequate alignment of lumbar vertebral bodies. There has b een previous fusion from L4 down to S1. There are degenerated discs throughout the lumbar spine. The cord terminates in its appropriate location. Axial imaging: That's what are to be a slight T12-L1: The thecal space and neural foramina are adequate. The facet joints are intact. L1-L2: The thecal space is adequate. The neural foramina are adequate. There is a small broad-based disc bul ge. This just effaces the ventral thecal sac. The foramina are adequate. L2-L3: There is minimal broad-based disc bulge. There is slight encroachment of disc bulge on the lateral re cess and base of the foramina on the right. The foramina on the left is adequate. There is mild facet arthritis bilaterally. L3-L4: There is a degenerated disc with broad-based disc bulge. This effaces the ventral thecal sac. There i s encroachment of disc bulge on the lateral recess and base of the foramina bilaterally. There is mod erate facet arthritis bilaterally. There is degenerative facet and ligamentous hypertrophy. The resid ual thecal sac at this level measures 1.1 cm in anterior/posterior plane. L4-L5: This level is fused. There is been previous laminectomy. The thecal space is adequate. The foramina o n the left is adequate. There is uncovertebral osteophyte encroaching upon the lateral recess and bas e of the foramina on the right. L5-S1: This level is fused. There is been previous laminectomy. The thecal space and foramina are adequate. The hardware appears intact. CONCLUSION: 1. Previous fusion from L4 down to S1. 2. Uncovertebral osteophytes evident projecting into the lateral recess on the right side at L4-5. 3. Severely degenerated disc with a broad-based disc bulge and facet arthritis at L3-4. 4. Degenerative changes throughout the remainder of the lumbar spine as listed above. Gray Mahmood MD on June 14, 2017 at 10:27 Board Certified Radiologist. This report was verified electronically.
[2017-06-14 12:15] VITALS: BP 123/66; PULSE 61; RESP 18; O2SAT 94
[2017-06-16] MEDS ORDERED: HYDR-3366 PO (08:36)
== END 2017-06-14 12:20 | disposition home or self-care (01) ==
LOC: HROP 07:18 → HRIP 07:19 → HROP 12:20
PROVIDERS: ATTEND Neurological Surgery
DX: M54.16 Radiculopathy, lumbar region (principal); I10 Essential (primary) hypertension; J44.9 Chronic obstructive pulmonary disease, unspecified; E66.9 Obesity, unspecified; M54.5 Low back pain; Z85.828 Personal history of other malignant neoplasm of skin; Z95.0 Presence of cardiac pacemaker; Z01.818 Encounter for other preprocedural examination; Z98.1 Arthrodesis status
CPT/HCPCS: 62304; 72131; 80048; 85025; 85610; 85730; J7120

== ENCOUNTER 2018-03-28 06:23 | Inpatient (IN) ==
[2018-03-28] MEDS ORDERED: Thrombin Topical Soln 5,000 UNIT Vial TOPICAL ONE ×2 (06:33→11:32)
[2018-03-28] MEDS ORDERED: Bupivacaine/Epinephrine PF Inj 0.5% 30 ML Vial ONE (06:33)
[2018-03-28] MEDS ORDERED: Gelatin Size 100 Topical Foam ONE ×2 (06:33→11:32)
[2018-03-28] MEDS ORDERED: Morphine Inj 4 MG/ML Vial ONE (07:11)
[2018-03-28] MEDS ORDERED: fentaNYL Citrate Inj 250 MCG/5 ML Ampul ONE (07:11)
[2018-03-28] MEDS ORDERED: Sodium Chloride 0.9% 2 ML Flush PRN IV.FLUSH (08:05)
[2018-03-28] MEDS ORDERED: Chlorhexidine Gluconate 2% 1 Pack (2 Cloths) TOPICAL ONE (08:15)
[2018-03-28] MEDS ORDERED: Sodium Chlor 0.9% Inj 500 ML IV.CONT ONE (08:15)
[2018-03-28] MEDS ORDERED: Metoprolol Tartrate 25 MG Tablet PO ONE (08:15)
[2018-03-28] MEDS ORDERED: Phenylephrine/NS 1000 MCG/10ML Syringe IV.PUSH ONE (08:40)
[2018-03-28] MEDS ORDERED: Lidocaine PF 1% Inj 5 ML Syringe OTHER ONE (08:40)
[2018-03-28] MEDS ORDERED: Sodium Chlor 0.9% Inj 250 ML IV.CONT ONE (08:40)
[2018-03-28] MEDS: Sodium Chloride 0.9% 2 ML Flush BID IV.FLUSH SCH ×2 (09:00→22:20)
[2018-03-28] MEDS ORDERED: Furosemide 20 MG Tablet PO PRN (13:01)
[2018-03-28] MEDS ORDERED: Spironolactone 25 MG Tablet PO PRN (13:01)
[2018-03-28] MEDS ORDERED: Docusate Sodium 100 MG Capsule PO PRN (13:01)
[2018-03-28] MEDS ORDERED: Menthol 5.8 MG Lozenge BUCCAL PRN (13:03)
[2018-03-28] MEDS ORDERED: Bisacodyl 10 MG Supp RECTAL PRN (13:03)
[2018-03-28] MEDS ORDERED: Aluminum/Magnesium/Simethacone Susp 30 ML UDC PO PRN (13:03)
[2018-03-28] MEDS ORDERED: Morphine Inj 4 MG/ML Vial IV.PUSH PRN (13:03)
[2018-03-28] MEDS ORDERED: Magnesium Sulfate Inj 2 GM in Sodium Chlor 0.9% Inj 96 ML IV.SIG PRN (13:03)
[2018-03-28] MEDS ORDERED: Labetalol HCl Inj 100 MG/20 ML Vial IV.PUSH PRN (13:03)
[2018-03-28] MEDS ORDERED: Calcium Gluconate Inj 1 GM in Sodium Chlor 0.9% Inj 100 ML IV.SIG PRN (13:03)
[2018-03-28] MEDS ORDERED: Potassium Chlor 20 mEq Premix 20 MEQ/100 ML PIGGYBACK IV.SIG PRN (13:03)
[2018-03-28] MEDS ORDERED: Acetaminophen 325 MG Tablet PO PRN (13:03)
--- NOTE | 2018-03-28 13:27 | P.OP ---
- Preoperative Diagnosis (1) Chronic low back pain with bilateral sciatica (2) Lumbar degenerative disc disease (3) Lumbar facet arthropathy (4) Spondylolisthesis, lumbar region (5) Spinal fusion failure (6) Instrumentation failure of anterior column of spine (7) Pseudoarthrosis of lumbar spine (8) Sebaceous cyst Date of procedure: 03/28/18 Procedure: Lumbar L3-4 transforaminal interbody fusion; L3-4 pedicle screw fixation; L3-4 interbody cage placement; L4, L5, and S1 bilateral pedicle screw removal; exploration of L4-S1 fusion; L4, L5 and S1 posterolateral fusion; resection of posterior thoracic subcutaneous mass; microsurgical technique Anesthesia: GETA Surgeon: Lit Youssef MD Teacher Of The Visually Impaired: Saadia Vazquez Estimated blood loss (mL): 100 Operation and Findings: This was a difficult case due to the patient obesity and multiple previous lumbar fusion surgeries with associated scar tissue. The [id number] details of the procedure, indications, alternatives, risks and potential complications were fully discussed with the patient. The patient fully understood. All the questions were answered. No guarantees were given. The patient voiced requesting the procedure and provided informed consents. The patient was offered the alternative of delaying the procedure and continuing with nonsurgical management. Prior to the procedure, the surgical incision was marked in the preoperative surgical holding room, and the procedure, risks, and potential complications revisited with the patient. Placement of electrodes for intraoperative neurophysiological monitoring was completed. The patient was taken to the operative room, and following induction of general anesthesia, endotracheal intubation was performed. A Alcaraz catheter, bilateral VAN hose and sequential compression devices were placed and kept throughout the procedure. The patient was positioned prone, over a Nikolay table over a Ar frame. All pressure in the preoperative surgical holding room points were carefully padded. The eyes were tapped shut after ointment was applied by the anesthesiologist to prevent corneal abrasion. A Icndi hugger was placed over the exposed lower body to maintain control of the core body temperature. The lumbar region was prepped and draped in the usual sterile fashion. Once the patient was positioned, a localizing cross-table lateral x-ray was performed with a C-arm. A midline incision overlying the previous incision sites was outlined on the skin. The skin incision made with a #10 blade. Small bleeders were controlled with the cautery. The dissection was then carried out into deeper planes and through the thoracolumbar fascia with a Bovie. The L3 spinous process and lamina were detached from the overlying muscle and there was laminectomy defect noted from the L4 to the S1 levels with exposure of the bilateral pedicle screws from L4-S1. Epidural scar tissue was lysed and expiration of the posterolateral gutters bilaterally did not reveal any fusion mass. The screws did appear to be lax and loose with instrumentation failure. Bilateral Rarden pedicle screws and rods were then removed and the holes plugged with Gelfoam hemostasis. I then decorticated left L4-L5 and S1 pars and transverse processes and sacral ala with a drill bit. The facet and transverse process at the left L3-4 levels were exposed and the proper anatomical landmarks were identified. A microsurgical self-retaining retractor was placed on the incision, and a localizing lateralizing cross-table x-ray was performed. Intraoperative microscope magnification used for further dissection. There was significant facet and ligamentum flavum hypertrophy noted. The left L3-4 facet was resected with a drill bit along with the lamina and there was severe foraminal and lateral recess stenosis from hypertrophied ligamentum flavum and facet which was decompressed. There was disc height collapse from the degeneration along with disc protrusion also leading to the foraminal stenosis. Epidural hemostasis was achieved with bipolar cautery and Gelfoam with thrombin. Subsequently entered into the disc space at the L3-4 level with a #15 blade and severiano were used for discectomy. I then placed PEEK cage packed with local autograft bone and more local autograft bone was packed adjacent to the cage in interspace for added interbody fusion. With placement of the cage, I was able to distract the interspace and opened up the foramen further bilaterally. Subsequently in order to facilitate the fusion and provide stabilization, pedicle screw fixation was undertaken using [place] spine screws on entry point at the left L3 and L4 level at the junction of the transverse process and facet with penetration through the pedicle into the body. Subsequently using AP and lateral fluoroscopy tap and screw placement. The screws were then connected with a paolo and locked in place with caps. I also used a local autograft of bone in combination with demineralized matrix for posterolateral fusion packing the left lateral gutters in the L3-4 and L4-5 for added fusion. The construct appeared very secure at this point. The area was then copiously irrigated with Vancomycin solution and powder. The retractors were removed and the bipolar cautery used for hemostasis. The muscle fascia was then approximated using 2-0 Vicryl interrupted stitches and then 3-0 Vicryl subcuticular stitches also placed in interrupted fashion. The final skin closure was completed with penelope. An incision was then made overlying the thoracic midline subcutaneous mass after infiltrating the skin with 0.5% Marcaine with epinephrine solution. An encapsulated partially crystallized to white material subcutaneous mass was circumferentially resected and hemostasis achieved with bipolar cautery the resection bed. The mass was sent for pathologic confirmation and the area irrigated and a 3-0 Vicryl subcuticular stitches placed in interrupted fashion and final skin closure was with penelope. A sterile dressing was then applied. The patient then turned in supine position, extubated and taken to recovery room. There were no intraoperative complications. All sponge and needle counts were correct at the end of procedure. Estimated blood loss about 100 ml.
[2018-03-28] MEDS ORDERED: *Meperidine Inj 25 MG/ML Vial PERIprocedural Use ONLY ONE (13:47)
--- NOTE | 2018-03-28 14:06 | XR ---
EXAM DATE: 03/28/2018 1:56 PM EDT AGE/SEX: 72 years / Male INDICATIONS: Post-op L4-L5-S1 hardware removal. L3-L4 posterior lumbar fusion. CLINICAL DATA: This is the patient's initial encounter. Patient reports that signs and symptoms have been present for 1 day and indicates a pain score of Nonresponsive. MEDICAL/SURGICAL HISTORY: Non-responsive. Fusion, lumbar. COMPARISON: . FINDINGS: The examination demonstrates transpedicular hardware on the left side at L3-4. The hardware appears w ell-positioned. Alignment of the spine demonstrates minimal retrolisthesis of L4 on 5. The spacing ruiz rdware pelvic well-positioned. CONCLUSION: Fusion hardware on the left side at L3-4. Electronically signed by: Gray Mahmood MD 03/28/2018 2:05 PM EDT
[2018-03-28 14:16] LABS: Eos % (Auto) 0.1 % (0.0-4.0); Hematocrit 42.2 % (39.0-51.0); Hemoglobin 14.1 gm/dL (13.0-17.0); Lymph # (Auto) 0.6 th/mm3 (1.0-4.8); Lymph % (Auto) 6.8 % (9.0-44.0); Mean Corpuscular HGB Conc 33.3 % (32.0-36.0); Mean Corpuscular Hemoglobin 30.8 pg (27.0-34.0); Mean Corpuscular Volume 92.5 fL (80.0-100.0); Mean Platelet Volume 9.5 fL (7.0-11.0); Mono # (Auto) 0.1 th/mm3 (0.0-0.9); Neut # (Auto) 8.8 th/mm3 (1.8-7.7); Neut % (Auto) 92.1 % (16.0-70.0); Platelet Count 128 th/mm3 (150-450); Red Blood Count 4.56 mil/mm3 (4.50-5.90); Red Cell Distribution Width 13.9 % (11.6-17.2); White Blood Count 9.6 th/mm3 (4.0-11.0)
--- NOTE | 2018-03-28 14:30 | P.CONIM ---
History of Present Illness Consult date: 03/28/18 Primary Care Provider: Do Reed Timmons Chief Complaint: Surgery History of Present Illness: The patient is a 72-year-old male with a past medical history significant for degenerative disc disease who is presenting to the hospital for elective surgery. He is status post: Lumbar L3-4 transforaminal interbody fusion; L3-4 pedicle screw fixation; L3-4 interbody cage placement; L4, L5, and S1 bilateral pedicle screw removal; exploration of L4-S1 fusion; L4, L5 and S1 posterolateral fusion; resection of posterior thoracic subcutaneous mass; microsurgical technique. He tolerated the procedure well. He says he feels like he has a pad of pressure at the incision site. He says at home he has been using a crutch for ambulation. He has pains radiating from his back up to his shoulders and down to his legs. He says he has exercises that he takes at home. He takes hydrocodone/APAP for pain control at home. He says he has had multiple surgeries in the past for his back and neck. He says that he smokes cigarettes daily and drinks vodka daily. Review of Systems All other systems reviewed negative except as stated in HPI PMFSH - History History Provided By: Patient - Medical History Medical History: Medical History (Last Reviewed 03/28/18 @ 14:27 by Vernon Mccormick DO) Alcohol dependence Anxiety Atherosclerosis of renal artery Back pain Benign colon polyp COPD (chronic obstructive pulmonary disease) Cardiac pacemaker Cervical radicular pain Cervicalgia Chronic pain syndrome DDD (degenerative disc disease) Diarrhea Duodenitis Fatty liver GERD (gastroesophageal reflux disease) Gait instability Gastritis H/O hemorrhoids History of skin cancer History of smoking Hypertension IBS (irritable bowel syndrome) Low back pain Lumbar stenosis Opioid dependence in controlled environment Post-nasal drip Renal cyst Simple chronic bronchitis Spondylo-arthropathy - Surgical History Surgical History: Surgical History (Last Reviewed 03/28/18 @ 14:27 by Vernon Mccormick DO) History of knee surgery History of lumbar surgery History of shoulder surgery - Family History Family History: Family History (Last Updated 03/28/18 @ 14:46 by Vernon Mccormick DO) Other Colon cancer - Social History I have reviewed the patient's Social History: Yes - Tobacco History Second Hand Smoke Exposure: No Smoking Status: Current every day smoker - Alcohol History How Often Do You Have a Drink Containing Alcohol: 4 or more times a week - Substance Use History Substance History: No History of Abuse - Travel History Recent Travel in the [place] Within the Last 8 Weeks: No Recent Travel Out of the Country Within the Last 8 Weeks: No Medications and Allergies Active Medications: Active Medications Acetaminophen (Tylenol) 650 mg PO Q4H PRN PRN Reason: TEMPERATURE > 101.5 F Hydrocodone Bitart/Acetaminophen ([place] 10/325) 1 tab PO Q4H PRN PRN Reason: Pain Scale 1 To 5 Hydrocodone Bitart/Acetaminophen ([place] 10/325) 2 tab PO Q4H PRN PRN Reason: PAIN SCALE 6 TO 10 Al Hydrox/Mg Hydrox/Simethicone (Mag-Al Plus Susp Liq) 30 ml PO Q6H PRN PRN Reason: DYSPEPSIA Al Hydroxide/Mg Hydroxide (Milk Of Magnesia Liq) 30 ml PO Q12H PRN PRN Reason: Mild Constipation Albuterol (Albuterol Neb (Prn)) 2.5 mg NEB Q4HR NEB PRN PRN Reason: WHEEZING Alprazolam (Xanax) 0.5 mg PO BID [place] Amlodipine Besylate (Norvasc) 2.5 mg PO DAILY [facility] Baclofen (Lioresal) 20 mg PO BID PRN PRN Reason: Muscle Spasm Bisacodyl (Dulcolax Supp) 10 mg RECTAL DAILY PRN PRN Reason: SEVERE CONSITIPATION Clonidine HCl (Catapres) 0.1 mg NG/OG Q6H PRN PRN Reason: SYS BP GREATER THAN 170 MMHG Cyanocobalamin (Vitamin B12) 1,000 mcg PO DAILY [facility] Cyclobenzaprine HCl (Flexeril) 10 mg PO Q8H PRN PRN Reason: MUSCLE SPASM Dicyclomine HCl (Bentyl) 10 mg PO QID [facility] Folic Acid (Folic Acid) 1 mg PO DAILY [facility] Furosemide (Lasix) 20 mg PO DAILY PRN PRN Reason: Weight Gain Gabapentin (Neurontin) 300 mg PO TID [facility] Linezolid (Zyvox 600 Mg Premix) 300 mls @ 300 mls/hr 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 [facility] Stop: 03/28/18 23:59 Last Infusion: 03/28/18 09:35 Dose: Infused Sodium Chloride (Ns Inj) 1,000 mls @ 30 mls/hr IV.SIG .Q24H [place] Lactated Ringer's (Lr 1000 Ml Inj) 1,000 mls @ 30 mls/hr IV.CONT .Q24H ONE Stop: 03/29/18 08:14 Last Infusion: 03/28/18 11:47 Dose: Infused Sodium Chloride (Ns Inj) 500 mls @ 30 mls/hr IV.CONT .[id number] ONE Stop: 03/29/18 00:54 Last Admin: 03/28/18 08:09 Dose: Not Given Calcium Gluconate 1 gm/ Sodium (Chloride) 110 mls @ 110 mls/hr IV.SIG UNSCH PRN PRN Reason: SEE LABEL COMMENTS Clindamycin/Sodium Chloride (Cleocin 600 Mg/Ns Premix) 600 mg in 50 mls @ 100 mls/hr IV.SIG Q6H [facility] Stop: 03/29/18 09:29 Magnesium Sulfate 2 gm/ Sodium (Chloride) 100 mls @ 100 mls/hr IV.SIG UNSCH PRN PRN Reason: MAGNESIUM LESS THAN 2 Sodium Chloride (Ns Inj) 1,000 mls @ 100 mls/hr IV.CONT .Q10H [facility] Stop: 03/29/18 13:14 Potassium Chloride (Kcl 20 Meq Premix Inj) 20 meq in 100 mls @ 50 mls/hr IV.SIG UNSCH PRN PRN Reason: POTASSIUM LESS THAN 4 Labetalol HCl (Trandate Inj) 10 mg IV.PUSH Q1H PRN PRN Reason: SYS BP GREATER THAN 170 MMHG Lactulose (Lactulose Liq) 30 ml PO BID [facility] Menthol ([place]) 1 lozenge BUCCAL UNSCH PRN PRN Reason: SORE THROAT Metoprolol Tartrate (Lopressor) 25 mg PO BID [facility] Miscellaneous (Pill Splitter) 1 each OTHER UNSCH PRN PRN Reason: SEE LABEL COMMENTS Miscellaneous Information (Misc Nursing Information) 0 each OTHER UNSCH PRN PRN Reason: SEE LABEL COMMENTS Stop: 03/29/18 13:18 Morphine Sulfate (Morphine Inj) 4 mg IV.PUSH Q2H PRN PRN Reason: Pain Scale 7 to 10 Non-Formulary Medication (Potassium [Potassium]) 99 mg PO DAILY [facility] Non-Formulary Medication (Magnesium Oxide [Magnesium Oxide]) 800 mg PO BID [facility] Ondansetron HCl (Zofran Inj) 4 mg IV.PUSH Q6H PRN PRN Reason: NAUSEA OR VOMITING Pantoprazole Sodium (Protonix) 40 mg PO DAILY [facility] Promethazine HCl (Phenergan Inj) 25 mg IM Q4H PRN PRN Reason: NAUSEA OR VOMITING Senna/Docusate Sodium (Kristen-Colace) 1 tab PO BID [facility] Sennosides (Senokot) 17.2 mg PO Q12H PRN PRN Reason: Moderate Constipation Sodium Chloride (Ns Flush) 2 ml IV.FLUSH BID [facility] Sodium Chloride (Ns Flush) 2 ml IV.FLUSH PRN PRN PRN Reason: FLUSH AFTER USING IV ACCESS Spironolactone (Aldactone) 25 mg PO DAILY PRN PRN Reason: Weight Gain Sucralfate (Carafate) 1 gm PO BID@1100,2300 [facility] Vitamin D (Vitamin D3) 1,000 unit PO DAILY [facility] Zolpidem Tartrate (Ambien) 5 mg PO HS PRN PRN Reason: INSOMNIA Allergies Allergy/AdvReac Type Severity Reaction Status Date / Time penicillin G Allergy Severe RED BUMPS Verified 03/28/18 07:11 Home Medications Medication Instructions Recorded Confirmed Type alprazolam 0.5 mg PO BID 03/23/18 03/28/18 History amlodipine 2.5 mg PO DAILY 03/23/18 03/28/18 History baclofen 20 mg PO BID PRN 03/23/18 03/28/18 History cholecalciferol (vitamin D3) 1,000 unit PO DAILY 03/23/18 03/28/18 History [Vitamin D3] cyanocobalamin (vitamin B-12) 1,000 mcg PO DAILY 03/23/18 03/28/18 History [Vitamin B-12] gabapentin 300 mg PO TID 03/23/18 03/28/18 History hydrocodone-acetaminophen 1 tab PO Q6H PRN 03/23/18 03/28/18 History pantoprazole 40 mg PO DAILY 03/23/18 03/28/18 History potassium 99 mg PO DAILY 03/23/18 03/28/18 History dicyclomine 10 mg PO QID 03/28/18 03/28/18 History docusate sodium 100 mg PO DAILY PRN 03/28/18 03/28/18 History folic acid 0.4 mg PO DAILY 03/28/18 03/28/18 History furosemide 20 mg PO DAILY PRN 03/28/18 03/28/18 History magnesium oxide 800 mg PO BID 03/28/18 03/28/18 History metoprolol tartrate 25 mg PO BID 03/28/18 03/28/18 History [id number]-epa-fish oil [[place]-3 1,000 mg PO DAILY 03/28/18 03/28/18 History Fish Oil] spironolactone 25 mg PO DAILY PRN 03/28/18 03/28/18 History sucralfate 1 g PO BID 03/28/18 03/28/18 History Exam Vital signs: Vital Signs 03/28/18 07:30 Temperature 98.5 F Pulse Rate 58 L Respiratory Rate 20 Blood Pressure 108/63 Pulse Oximetry 98 Intake & Output 03/27/18 03/28/18 03/28/18 18:59 06:59 18:59 Intake Total 1800 / 1800 Output Total 250 / 250 Balance 1550 / 1550 Weight 84.5 kg Intake: IV 1300 / 1300 LR 1000 mL Inj 1,000 ML @ 30 1000 / 1000 mls/hr IV.CONT .Q24H ONE Rx#: [id number] Zyvox 600 mg Premix 300 ML @ 300 / 300 300 mls/hr 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 HEENT: Normocephalic, atraumatic. Pupils equal, round and reactive. Extraocular movements intact. No scleral icterus. No injection or drainage. Oropharynx is clear. Mucous membranes are moist. CARDIOVASCULAR: Regular rate and rhythm without murmurs, gallops, or rubs. RESPIRATORY: Clear to auscultation. No wheezes, rales, or rhonchi. Breathing is non-labored. GASTROINTESTINAL: Abdomen soft, non-tender, nondistended. EXTREMITIES: No lower extremity edema. VAN hose. NEURO: Alert and oriented x 3. Results - Labs CBC & Chem 7: 03/28/18 13:45 03/28/18 13:45 Labs: Laboratory Results - last 24 hr 03/28/18 03/28/18 07:40 13:45 WBC 9.6 RBC 4.56 Hgb 14.1 Hct 42.2 MCV 92.5 MCH 30.8 MCHC 33.3 RDW 13.9 Plt Count 128 L MPV 9.5 Neut % (Auto) 92.1 H Lymph % (Auto) 6.8 L [place] % (Auto) 1.0 Eos % (Auto) 0.1 Baso % (Auto) 0.0 Neut # (Auto) 8.8 H Lymph # (Auto) 0.6 L [place] # (Auto) 0.1 Eos # (Auto) 0.0 Baso # (Auto) 0.0 WBC Differential . Differential Comment Auto diff final Blood Type A Positive Antibody Screen Negative - Imaging Impressions Lumbar Spine X-Ray 03/28/18 00:00 CONCLUSION: Fusion hardware on the left side at L3-4. Assessment and Plan - Plan Degenerative disc disease S/p: Lumbar L3-4 transforaminal interbody fusion; L3-4 pedicle screw fixation; L3-4 interbody cage placement; L4, L5, and S1 bilateral pedicle screw removal; exploration of L4-S1 fusion; L4, L5 and S1 posterolateral fusion; resection of posterior thoracic subcutaneous mass; microsurgical technique 03/28. -management per neurosurgery. -pain control with a bowel regimen. -incentive spirometry. -rehab efforts. Alcohol abuse The pt endorses drinking four mini bottles of vodka daily. -cessation instruction. -CIWA protocol. Nicotine dependance The pt smokes about a pack daily. -cessation instruction. Hyperglycemia May be a stress reaction. -check an A1c. PPx: Per surgery
[2018-03-28 14:32] LABS: Calcium 8.1 mg/dL (8.5-10.1); Carbon Dioxide 28.1 meq/L (21.0-32.0); Magnesium 1.7 mg/dL (1.5-2.5); Potassium 3.5 meq/L (3.5-5.1)
[2018-03-28] MEDS ORDERED: LORazepam 1 MG Tablet PO PRN (14:41)
[2018-03-28] MEDS ORDERED: Haloperidol Inj 5 MG/ML Ampul IV.PUSH PRN (14:41)
[2018-03-28] MEDS: Sod Chloride 0.9% Inj 1,000 ML IV.CONT SCH (14:49)
[2018-03-28] MEDS: Clindamycin 600 mg/NS Premix 600 MG/50 ML PIGGYBACK IV.SIG SCH ×2 (15:27→22:17)
[2018-03-28] MEDS: Gabapentin 300 MG Capsule PO SCH (18:00)
[2018-03-28] MEDS: Dicyclomine 10 MG Capsule PO SCH ×2 (19:41→22:21)
[2018-03-28] MEDS ORDERED: ALPRAZolam 0.5 MG Tablet PO SCH (21:00)
[2018-03-28] MEDS ORDERED: Zolpidem Tartrate 5 MG Tablet PO PRN (21:00)
[2018-03-28] MEDS: Metoprolol Tartrate 25 MG Tablet PO SCH (22:19)
[2018-03-28] MEDS: Magnesium Oxide 400 MG Tablet PO SCH (22:20)
[2018-03-28] MEDS: Sucralfate 1 GM Tablet PO SCH (22:20)
[2018-03-28] MEDS: ALPRAZolam 0.5 MG Tablet PO PRN (22:21)
[2018-03-28 22:26] LABS: Hemoglobin A1c 5.5 % (4.3-6.0)
[2018-03-28] MEDS: Senna/Docusate Sodium 8.6/50 MG Tablet PO SCH (22:26)
[2018-03-29] MEDS: Sod Chloride 0.9% Inj 1,000 ML IV.CONT SCH ×2 (01:40→10:05)
[2018-03-29] MEDS: Clindamycin 600 mg/NS Premix 600 MG/50 ML PIGGYBACK IV.SIG SCH ×2 (04:00→10:04)
[2018-03-29 09:02] LABS: Baso % (Auto) 0.1 % (0.0-2.0); Hemoglobin 12.3 gm/dL (13.0-17.0); Lymph # (Auto) 1.4 th/mm3 (1.0-4.8); Lymph % (Auto) 15.6 % (9.0-44.0); Mean Corpuscular Hemoglobin 31.4 pg (27.0-34.0); Mean Corpuscular Volume 92.4 fL (80.0-100.0); Mono # (Auto) 0.7 th/mm3 (0.0-0.9); Mono % (Auto) 7.1 % (0.0-8.0); Neut # (Auto) 7.2 th/mm3 (1.8-7.7); Neut % (Auto) 77.2 % (16.0-70.0); Platelet Count 119 th/mm3 (150-450); Red Cell Distribution Width 14.2 % (11.6-17.2); White Blood Count 9.3 th/mm3 (4.0-11.0)
[2018-03-29 09:27] LABS: Anion Gap 6 meq/L (5-15); Blood Urea Nitrogen 13 mg/dL (7-18); Calcium 7.7 mg/dL (8.5-10.1); Carbon Dioxide 31.5 meq/L (21.0-32.0); Chloride 103 meq/L (98-107); Glomerular Filtration Rate Greater Than 89 mL/min (>89); Glucose,Random 94 mg/dL (74-106); Magnesium 2.2 mg/dL (1.5-2.5); Potassium 3.7 meq/L (3.5-5.1); Sodium 140 meq/L (136-145)
[2018-03-29 09:29] LABS: Phosphorus 2.7 mg/dL (2.5-4.9)
[2018-03-29] MEDS: Metoprolol Tartrate 25 MG Tablet PO SCH ×2 (09:57→21:10)
[2018-03-29] MEDS: Folic Acid 1 MG Tablet PO SCH (09:59)
[2018-03-29] MEDS: Gabapentin 300 MG Capsule PO SCH ×3 (09:59→17:43)
[2018-03-29] MEDS: amLODIPine 5 MG Tablet PO SCH (10:00)
[2018-03-29] MEDS: Dicyclomine 10 MG Capsule PO SCH ×4 (10:00→21:11)
[2018-03-29] MEDS: Sodium Chloride 0.9% 2 ML Flush BID IV.FLUSH SCH ×2 (10:03→21:11)
[2018-03-29] MEDS: Senna/Docusate Sodium 8.6/50 MG Tablet PO SCH ×2 (10:04→21:11)
[2018-03-29] MEDS: Sod Chloride 0.9% Inj 1,000 ML IV.SIG SCH ×2 (10:04→10:08)
--- NOTE | 2018-03-29 11:01 | P.PNNS ---
Subjective Interval history: Pt awake and alert. He is sitting up on edge of bed. Brace is not in place. Pt states he just got up. Brace applied on pt. He states he is voiding well. Pain is controlled with medication. He states the left foot hypersensitivity is improved. Chronic left foot weakness stable to some improvement now able to plantar flex toes. <Mikhail Lopez - Last Filed: 03/29/18 10:50> Physical Exam Vital signs: Vital Signs 03/28/18 13:15 03/28/18 13:30 03/28/18 13:45 Temperature 97.6 F Pulse Rate 61 64 56 L Respiratory Rate 20 20 20 Blood Pressure 143/67 H 136/65 113/57 L Pulse Oximetry 94 L 98 94 L 03/28/18 14:00 03/28/18 15:00 03/28/18 16:00 Temperature 98.0 F Pulse Rate 61 54 L 53 L Respiratory Rate 18 18 20 Blood Pressure 121/58 L 103/55 L 118/58 L Pulse Oximetry 94 L 95 97 03/28/18 18:00 03/28/18 19:00 03/28/18 22:00 Temperature 98.2 F 97.2 F L Pulse Rate 63 63 66 Respiratory Rate 20 20 19 Blood Pressure 146/66 H 118/57 L 124/59 L Pulse Oximetry 95 95 95 03/29/18 00:00 03/29/18 01:10 03/29/18 04:00 Temperature 97.5 F L 97.8 F Pulse Rate 64 64 Respiratory Rate 21 18 18 Blood Pressure 114/55 L 114/57 L Pulse Oximetry 97 97 03/29/18 04:50 03/29/18 08:00 Temperature 97.8 F Pulse Rate 65 Respiratory Rate 18 20 Blood Pressure 139/66 Pulse Oximetry 95 Intake & Output 03/28/18 03/29/18 03/29/18 18:59 06:59 18:59 Intake Total 2570 / 2570 1100 / 1100 1480 / 1480 Output Total 780 / 780 1490 / 1490 300 / 300 Balance 1790 / 1790 -390 / -390 1180 / 1180 Weight 84.5 kg 83.915 kg Intake: IV 1550 / 1550 1100 / 1100 1000 / 1000 LR 1000 mL Inj 1,000 ML @ 30 1000 / 1000 mls/hr IV.CONT .Q24H ONE Rx#: [id number] NS Inj 1,000 ML @ 100 mls/hr IV 1000 / 1000 1000 / 1000 .CONT .Q10H [facility] Rx#:[id number] Cleocin 600 mg/NS Premix 600 mg 50 / 50 100 / 100 In 50 ml @ 100 mls/hr IV.SIG Q6H [facility] Rx#:[id number] Zyvox 600 mg Premix 300 ML @ 300 / 300 300 mls/hr IV.SIG [employer]OAD[employer]IE[employer]ER [facility] Rx#:[id number] Magnesium Sulfate Inj 2 GM In 100 / 100 NS Inj 96 ML @ 100 mls/hr IV. SIG UNSCH PRN Rx#:[id number] KCl 20 mEq Premix Inj 20 meq In 100 / 100 100 ml @ 50 mls/hr IV.SIG UNSCH PRN Rx#:[id number] Oral 520 / 520 480 / 480 Anesthesia Amount 500 / 500 Output: Urine 1100 / 1100 300 / 300 Estimated Blood Loss 100 / 100 Urine Amount (Catheter) 550 / 550 225 / 225 Indwelling Urethral Catheter 550 / 550 225 / 225 Wound Drainage 130 / 130 165 / 165 # 1 Lower Back KJ Drain 130 / 130 165 / 165 Other: Date of Last Bowel Movement 03/27/18 Weight On Admission 84.5 kg - Constitutional no acute distress - Routine HEENT Exam Head: Present: normocephalic, atraumatic Eye: Present: PERRL - Routine Respiratory Exam Present: CTA bilaterally. Absent: respiratory distress, rhonchi, wheezes - Routine Cardiovascular Exam Present: RRR, S1, S2. Absent: murmur - Routine Abdominal Exam Present: soft, normoactive bowel sounds. Absent: distended, firm - Routine Skin Exam Absent: cyanosis, erythema Comments: Incisions clean and dry. [place] in place. KJ drain in place. New bandage placed. - Routine Neurological Exam Present: alert, oriented X3, motor deficit (Weakness left dorsiflexion and EHL chronic. Pt states some improvement with plantar flexion.), altered mental status, moving all extremities Pts lumbar brace applied. - Routine Psychiatric Exam Present: normal affect. Absent: anxious, agitated - Urinary Catheter Management Indwelling Urethral Catheter Cath placed during this visit: yes, but has since been removed by the nurse Reason for continuing: Hourly intake/output Insertion date: 03/28/18 Insertion time: 08:50 Removal date: 03/29/18 Removal time: 06:00 <Mikhail Lopez - Last Filed: 03/29/18 10:50> Vital signs: Vital Signs 03/28/18 18:00 03/28/18 19:00 03/28/18 22:00 Temperature 98.2 F 97.2 F L Pulse Rate 63 63 66 Respiratory Rate 20 20 19 Blood Pressure 146/66 H 118/57 L 124/59 L Pulse Oximetry 95 95 95 03/29/18 00:00 03/29/18 01:10 03/29/18 04:00 Temperature 97.5 F L 97.8 F Pulse Rate 64 64 Respiratory Rate 21 18 18 Blood Pressure 114/55 L 114/57 L Pulse Oximetry 97 97 03/29/18 04:50 03/29/18 08:00 03/29/18 12:00 Temperature 97.8 F 98.0 F Pulse Rate 65 67 Respiratory Rate 18 20 20 Blood Pressure 139/66 142/66 H Pulse Oximetry 95 96 Intake & Output 03/28/18 03/29/18 03/29/18 18:59 06:59 18:59 Intake Total 2570 / 2570 1100 / 1100 1530 / 1530 Output Total 780 / 780 1490 / 1490 300 / 300 Balance 1790 / 1790 -390 / -390 1230 / 1230 Weight 84.5 kg 83.915 kg Intake: IV 1550 / 1550 1100 / 1100 1050 / 1050 LR 1000 mL Inj 1,000 ML @ 30 1000 / 1000 mls/hr IV.CONT .Q24H ONE Rx#: [id number] NS Inj 1,000 ML @ 100 mls/hr IV 1000 / 1000 1000 / 1000 .CONT .Q10H [facility] Rx#:[id number] Cleocin 600 mg/NS Premix 600 mg 50 / 50 100 / 100 50 / 50 In 50 ml @ 100 mls/hr IV.SIG Q6H [facility] Rx#:[id number] Zyvox 600 mg Premix 300 ML @ 300 / 300 300 mls/hr IV.SIG [employer]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 SIG UNSCH PRN Rx#:[id number] KCl 20 mEq Premix Inj 20 meq In 100 / 100 100 ml @ 50 mls/hr IV.SIG UNSCH PRN Rx#:[id number] Oral 520 / 520 480 / 480 Anesthesia Amount 500 / 500 Output: Urine 1100 / 1100 300 / 300 Estimated Blood Loss 100 / 100 Urine Amount (Catheter) 550 / 550 225 / 225 Indwelling Urethral Catheter 550 / 550 225 / 225 Wound Drainage 130 / 130 165 / 165 # 1 Lower Back KJ Drain 130 / 130 165 / 165 Other: Date of Last Bowel Movement 03/27/18 Weight On Admission 84.5 kg - Urinary Catheter Management Indwelling Urethral Catheter Cath placed during this visit: no <DomoniqueLit goldsmith - Last Filed: 03/29/18 16:52> Assessment and Plan - Assessment (1) Chronic low back pain with bilateral sciatica Code(s): M54.41 - Lumbago with sciatica, right side; M54.42 - Lumbago with sciatica, left side; G89.29 - Other chronic pain Status: Chronic (2) Lumbar degenerative disc disease Code(s): M51.36 - Other intervertebral disc degeneration, lumbar region Status : Chronic (3) Lumbar facet arthropathy Code(s): M47.816 - Spondylosis without myelopathy or radiculopathy, lumbar region Status: Acute (4) Spondylolisthesis, lumbar region Code(s): M43.16 - Spondylolisthesis, lumbar region Status: Chronic (5) Spinal fusion failure Code(s): T84.9XXA - Unspecified complication of internal orthopedic prosthetic device, implant and graft, initial encounter Status: Chronic (6) 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 P: Continue to monitor Continue with current care Encourage pt to be up with PT, discussed with PT and he declined but will try. Lumbar brace on when sitting, standing or walking. <Mikhail Lopez - Last Filed: 03/29/18 10:50> - Attending Attestation The exam, history, and the medical decision-making described in the above note were completed with the assistance of the mid-level provider. I reviewed and agree with the findings presented. I attest that I had a [id number] encounter with the patient on the same day, and personally performed and documented my assessment and findings in the medical record. <Lit Youssef - Last Filed: 03/29/18 16:52>
[2018-03-29] MEDS: Sucralfate 1 GM Tablet PO SCH (11:15)
[2018-03-29] MEDS: Magnesium Oxide 400 MG Tablet PO SCH (11:16)
[2018-03-29] MEDS: ALPRAZolam 0.5 MG Tablet PO PRN (11:16)
--- NOTE | 2018-03-29 15:32 | P.PNIM ---
Subjective Interval history: Patient seen earlier today. He has been very anxious. He states he takes Xanax 3 times daily and not as needed. He is requesting a dose of Xanax. He also complains that the bed is uncomfortable. Physical Exam Vital signs: Vital Signs 03/28/18 16:00 03/28/18 18:00 03/28/18 19:00 Temperature 98.2 F Pulse Rate 53 L 63 63 Respiratory Rate 20 20 20 Blood Pressure 118/58 L 146/66 H 118/57 L Pulse Oximetry 97 95 95 03/28/18 22:00 03/29/18 00:00 03/29/18 01:10 Temperature 97.2 F L 97.5 F L Pulse Rate 66 64 Respiratory Rate 19 21 18 Blood Pressure 124/59 L 114/55 L Pulse Oximetry 95 97 03/29/18 04:00 03/29/18 04:50 03/29/18 08:00 Temperature 97.8 F 97.8 F Pulse Rate 64 65 Respiratory Rate 18 18 20 Blood Pressure 114/57 L 139/66 Pulse Oximetry 97 95 03/29/18 12:00 Temperature 98.0 F Pulse Rate 67 Respiratory Rate 20 Blood Pressure 142/66 H Pulse Oximetry 96 Intake & Output 03/28/18 03/29/18 03/29/18 18:59 06:59 18:59 Intake Total 2570 / 2570 1100 / 1100 1530 / 1530 Output Total 780 / 780 1490 / 1490 300 / 300 Balance 1790 / 1790 -390 / -390 1230 / 1230 Weight 84.5 kg 83.915 kg Intake: IV 1550 / 1550 1100 / 1100 1050 / 1050 LR 1000 mL Inj 1,000 ML @ 30 1000 / 1000 mls/hr IV.CONT .Q24H ONE Rx#: [id number] NS Inj 1,000 ML @ 100 mls/hr IV 1000 / 1000 1000 / 1000 .CONT .Q10H [facility] Rx#:[id number] Cleocin 600 mg/NS Premix 600 mg 50 / 50 100 / 100 50 / 50 In 50 ml @ 100 mls/hr IV.SIG Q6H [facility] Rx#:[id number] Zyvox 600 mg Premix 300 ML @ 300 / 300 300 mls/hr IV.SIG [employer]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 SIG UNSCH PRN Rx#:[id number] KCl 20 mEq Premix Inj 20 meq In 100 / 100 100 ml @ 50 mls/hr IV.SIG UNSCH PRN Rx#:[id number] Oral 520 / 520 480 / 480 Anesthesia Amount 500 / 500 Output: Urine 1100 / 1100 300 / 300 Estimated Blood Loss 100 / 100 Urine Amount (Catheter) 550 / 550 225 / 225 Indwelling Urethral Catheter 550 / 550 225 / 225 Wound Drainage 130 / 130 165 / 165 # 1 Lower Back KJ Drain 130 / 130 165 / 165 Other: Date of Last Bowel Movement 03/27/18 Weight On Admission 84.5 kg Narrative: GENERAL: Sitting up in bed. Anxious. HEENT: Normocephalic, atraumatic. Pupils equal, round and reactive. CARDIOVASCULAR: Regular rate and rhythm without murmurs, gallops, or rubs. RESPIRATORY: Clear to auscultation. No wheezes, rales, or rhonchi. Breathing is non-labored. GASTROINTESTINAL: Abdomen soft, non-tender, nondistended. BACK: Postop dressing appear clean and intact. Drain with serosanguineous fluid. EXTREMITIES: No lower extremity edema. NEURO: Alert and oriented x 3. - Urinary Catheter Management Indwelling Urethral Catheter Cath placed during this visit: yes, but has since been removed by the nurse Reason for continuing: Hourly intake/output Insertion date: 03/28/18 Insertion time: 08:50 Removal date: 03/29/18 Removal time: 06:00 Results - Labs CBC & Chem 7: 03/29/18 06:25 03/29/18 06:25 Laboratory Results - last 24 hr 03/28/18 03/29/18 03/29/18 13:45 06:25 06:25 WBC 9.3 RBC 3.90 L Hgb 12.3 L Hct 36.0 L MCV 92.4 MCH 31.4 MCHC 34.0 RDW 14.2 Plt Count 119 L MPV 10.0 Neut % (Auto) 77.2 H Lymph % (Auto) 15.6 [place] % (Auto) 7.1 Eos % (Auto) 0.0 Baso % (Auto) 0.1 Neut # (Auto) 7.2 Lymph # (Auto) 1.4 [place] # (Auto) 0.7 Eos # (Auto) 0.0 Baso # (Auto) 0.0 WBC Differential . Differential Comment Auto diff final Sodium 140 Potassium 3.7 Chloride 103 Carbon Dioxide 31.5 Anion Gap 6 BUN 13 Creatinine 0.81 Estimated GFR Greater than 89 Random Glucose 94 Hemoglobin A1c 5.5 Calcium 7.7 L Phosphorus 2.7 Magnesium 2.2 Assessment and Plan - Plan Degenerative disc disease S/p: Lumbar L3-4 transforaminal interbody fusion; L3-4 pedicle screw fixation; L3-4 interbody cage placement; L4, L5, and S1 bilateral pedicle screw removal; exploration of L4-S1 fusion; L4, L5 and S1 posterolateral fusion; resection of posterior thoracic subcutaneous mass; microsurgical technique 03/28. -management per neurosurgery. -pain control with a bowel regimen. -incentive spirometry. -rehab efforts. Alcohol abuse The pt endorses drinking four mini bottles of vodka daily. -cessation instruction. -CIWA protocol. Anxiety: - Will schedule Xanax TID per his home dose. Nicotine dependance The pt smokes about a pack daily. -cessation instruction. - Nicotine patch if needed Hyperglycemia likely stress reaction. Resolved - A1c 5.9. PPx: Per surgery
[2018-03-29] MEDS ORDERED: Simethicone 125 MG Chew Tablet PO PRN (16:50)
[2018-03-29] MEDS ORDERED: Simethicone 80 MG Chew Tablet PO ONE (16:50)
[2018-03-29] MEDS: ALPRAZolam 0.5 MG Tablet PO SCH (17:44)
[2018-03-30] MEDS: Sucralfate 1 GM Tablet PO SCH ×3 (00:03→23:23)
[2018-03-30] MEDS: Magnesium Oxide 400 MG Tablet PO SCH ×3 (00:04→23:23)
[2018-03-30] MEDS: Dicyclomine 10 MG Capsule PO SCH ×4 (09:05→20:37)
[2018-03-30] MEDS: Metoprolol Tartrate 25 MG Tablet PO SCH ×2 (09:05→20:37)
[2018-03-30] MEDS: ALPRAZolam 0.5 MG Tablet PO SCH ×3 (09:05→17:38)
[2018-03-30] MEDS: Senna/Docusate Sodium 8.6/50 MG Tablet PO SCH ×2 (09:05→20:44)
[2018-03-30] MEDS: Folic Acid 1 MG Tablet PO SCH (09:05)
[2018-03-30] MEDS: amLODIPine 5 MG Tablet PO SCH (09:05)
[2018-03-30] MEDS: Gabapentin 300 MG Capsule PO SCH ×3 (09:05→17:38)
[2018-03-30] MEDS: Sodium Chloride 0.9% 2 ML Flush BID IV.FLUSH SCH ×2 (09:06→20:38)
[2018-03-30] MEDS: Sod Chloride 0.9% Inj 1,000 ML IV.SIG SCH (09:06)
--- NOTE | 2018-03-30 10:30 | P.PN ---
Subjective Interval history: states he takes Gas X- d/w him he is on euivalent Siemthicone states had a Bowel movement no complains of back pain vodiing well Physical Exam Vital signs: Vital Signs 03/29/18 12:00 03/29/18 16:00 03/29/18 20:00 Temperature 98.0 F 97.9 F 97.5 F L Pulse Rate 67 73 71 Respiratory Rate 20 20 20 Blood Pressure 142/66 H 170/81 H 138/66 Pulse Oximetry 96 98 93 L 03/30/18 00:00 03/30/18 04:00 03/30/18 08:00 Temperature 97.8 F 98.1 F 97.9 F Pulse Rate 58 L 67 76 Respiratory Rate 21 19 19 Blood Pressure 131/63 120/56 L 158/85 H Pulse Oximetry 97 96 94 L Intake & Output 03/29/18 03/30/18 03/30/18 18:59 06:59 18:59 Intake Total 1530 / 1530 1000 / 1000 Output Total 760 / 760 755 / 755 Balance 770 / 770 -755 / -755 1000 / 1000 Weight 80.8 kg Intake: IV 1050 / 1050 1000 / 1000 NS Inj 1,000 ML @ 100 mls/hr IV 1000 / 1000 .CONT .Q10H [facility] Rx#:[id number] Cleocin 600 mg/NS Premix 600 mg 50 / 50 In 50 ml @ 100 mls/hr IV.SIG Q6H [facility] Rx#:[id number] NS Inj 1,000 ML @ 30 mls/hr IV. 1000 / 1000 SIG .Q24H [facility] Rx#:[id number] Oral 480 / 480 Output: Urine 700 / 700 700 / 700 Wound Drainage 60 / 60 55 / 55 # 1 Lower Back KJ Drain 60 / 60 55 / 55 Other: Date of Last Bowel Movement 03/29/18 03/30/18 03/30/18 # Bowel Movements 4 Narrative: GENERAL: awake and alert, no distress HEENT: Normocephalic,Pupils equal, round and reactive. CARDIOVASCULAR: Regular rate and rhythm without murmurs, gallops, or rubs. RESPIRATORY: Clear to auscultation. No wheezes, rales, or rhonchi. Breathing is non-labored. GASTROINTESTINAL: Abdomen soft, non-tender, nondistended. BACK: Postop dressing appear clean and intact. EXTREMITIES: No lower extremity edema. NEURO: Alert and oriented x 3. - Urinary Catheter Management Indwelling Urethral Catheter Cath placed during this visit: yes, but has since been removed by the nurse Reason for continuing: Hourly intake/output Insertion date: 03/28/18 Insertion time: 08:50 Removal date: 03/29/18 Removal time: 06:00 Results - Labs CBC & Chem 7: 03/29/18 06:25 03/29/18 06:25 - Procedures 03/28 Lumbar L3-4 transforaminal interbody fusion; L3-4 pedicle screw fixation; L3-4 interbody cage placement; L4, L5, and S1 bilateral pedicle screw removal; exploration of L4-S1 fusion; L4, L5 and S1 posterolateral fusion; resection of posterior thoracic subcutaneous mass; microsurgical technique Assessment and Plan - Plan 72 years old male Degenerative disc disease S/p: Lumbar L3-4 transforaminal interbody fusion; L3-4 pedicle screw fixation; L3-4 interbody cage placement; L4, L5, and S1 bilateral pedicle screw removal; exploration of L4-S1 fusion; L4, L5 and S1 posterolateral fusion; resection of posterior thoracic subcutaneous mass; microsurgical technique 03/28. -management per neurosurgery. -pain control with a bowel regimen. -incentive spirometry. -rehab efforts. Alcohol abuse The pt endorses drinking four mini bottles of vodka daily. -cessation instruction. -CIWA protocol. Anxiety: - scheduled Xanax TID per his home dose. Nicotine dependance The pt smokes about a pack daily. -cessation instruction. - Nicotine patch if needed Hyperglycemia likely stress reaction. Resolved - A1c 5.9. PPx: Per surgery MOtivated with therapy DC planning - rehab for therapy
[2018-03-30] MEDS: Simethicone 125 MG Chew Tablet PO SCH ×2 (12:04→17:38)
--- NOTE | 2018-03-30 13:16 | P.PNNS ---
Subjective Interval history: Pt awake and alert. Complains of incisional pain and bloating and gas. Pt states he is moving his bowels. <Mikhail Lopez - Last Filed: 03/30/18 13:11> Physical Exam Vital signs: Vital Signs 03/29/18 16:00 03/29/18 20:00 03/30/18 00:00 Temperature 97.9 F 97.5 F L 97.8 F Pulse Rate 73 71 58 L Respiratory Rate 20 20 21 Blood Pressure 170/81 H 138/66 131/63 Pulse Oximetry 98 93 L 97 03/30/18 04:00 03/30/18 08:00 03/30/18 12:00 Temperature 98.1 F 97.9 F 98.3 F Pulse Rate 67 76 78 Respiratory Rate 19 19 19 Blood Pressure 120/56 L 158/85 H 121/74 Pulse Oximetry 96 94 L 98 Intake & Output 03/29/18 03/30/18 03/30/18 18:59 06:59 18:59 Intake Total 1530 / 1530 1000 / 1000 Output Total 760 / 760 755 / 755 Balance 770 / 770 -755 / -755 1000 / 1000 Weight 80.8 kg Intake: IV 1050 / 1050 1000 / 1000 NS Inj 1,000 ML @ 100 mls/hr IV 1000 / 1000 .CONT .Q10H [facility] Rx#:[id number] Cleocin 600 mg/NS Premix 600 mg 50 / 50 In 50 ml @ 100 mls/hr IV.SIG Q6H [facility] Rx#:[id number] NS Inj 1,000 ML @ 30 mls/hr IV. 1000 / 1000 SIG .Q24H [facility] Rx#:[id number] Oral 480 / 480 Output: Urine 700 / 700 700 / 700 Wound Drainage 60 / 60 55 / 55 # 1 Lower Back KJ Drain 60 / 60 55 / 55 Other: Date of Last Bowel Movement 03/29/18 03/30/18 03/30/18 # Bowel Movements 4 - Constitutional no acute distress - Routine HEENT Exam Head: Present: normocephalic Eye: Present: PERRL (Pupils 3mm bilaterally reactive bilaterally.) - Routine Respiratory Exam Present: CTA bilaterally. Absent: respiratory distress, rhonchi, wheezes - Routine Cardiovascular Exam Present: RRR, S1, S2. Absent: murmur - Routine Abdominal Exam Present: normoactive bowel sounds. Absent: tenderness, distended, firm - Routine Neurological Exam Present: alert, motor deficit (dorsiflexion 3/5 strength and EHL strength.), moving all extremities, normal speech. Absent: altered mental status - Routine Psychiatric Exam Present: normal affect, cooperative. Absent: anxious, agitated - Urinary Catheter Management Indwelling Urethral Catheter Cath placed during this visit: yes, but has since been removed by the nurse Reason for continuing: Hourly intake/output Insertion date: 03/28/18 Insertion time: 08:50 Removal date: 03/29/18 Removal time: 06:00 <Mikhail Lopez - Last Filed: 03/30/18 13:11> Vital signs: Vital Signs 03/29/18 20:00 03/30/18 00:00 03/30/18 04:00 Temperature 97.5 F L 97.8 F 98.1 F Pulse Rate 71 58 L 67 Respiratory Rate 20 21 19 Blood Pressure 138/66 131/63 120/56 L Pulse Oximetry 93 L 97 96 03/30/18 08:00 03/30/18 12:00 03/30/18 16:00 Temperature 97.9 F 98.3 F 97.9 F Pulse Rate 76 78 76 Respiratory Rate 19 19 18 Blood Pressure 158/85 H 121/74 160/78 H Pulse Oximetry 94 L 98 96 Intake & Output 03/30/18 03/30/18 03/31/18 06:59 18:59 06:59 Intake Total 1999 Output Total 755 / 755 Balance -755 / -755 1999 Weight 80.8 kg Intake: IV 1000 / 1000 NS Inj 1,000 ML @ 30 mls/hr IV. 1000 / 1000 SIG .Q24H [facility] Rx#:[id number] Oral 1000 / 1000 Output: Urine 700 / 700 Wound Drainage 55 / 55 # 1 Lower Back KJ Drain 55 / 55 Other: # Voids 4 Date of Last Bowel Movement 03/30/18 03/30/18 # Bowel Movements 4 2 - Urinary Catheter Management Indwelling Urethral Catheter Cath placed during this visit: no <Lit Youssef - Last Filed: 03/30/18 19:24> Assessment and Plan - Assessment (1) Chronic low back pain with bilateral sciatica Code(s): M54.41 - Lumbago with sciatica, right side; M54.42 - Lumbago with sciatica, left side; G89.29 - Other chronic pain Status: Chronic (2) Lumbar degenerative disc disease Code(s): M51.36 - Other intervertebral disc degeneration, lumbar region Status : Chronic (3) Lumbar facet arthropathy Code(s): M47.816 - Spondylosis without myelopathy or radiculopathy, lumbar region Status: Acute (4) Spondylolisthesis, lumbar region Code(s): M43.16 - Spondylolisthesis, lumbar region Status: Chronic (5) Spinal fusion failure Code(s): T84.9XXA - Unspecified complication of internal orthopedic prosthetic device, implant and graft, initial encounter Status: Chronic (6) 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 P: Continue to monitor Continue with current care Encourage pt to be up with PT Lumbar brace on when sitting, standing or walking. <Mikhail Lopez - Last Filed: 03/30/18 13:11> - Attending Attestation The exam, history, and the medical decision-making described in the above note were completed with the assistance of the mid-level provider. I reviewed and agree with the findings presented. I attest that I had a [id number] encounter with the patient on the same day, and personally performed and documented my assessment and findings in the medical record. <Lit Youssef - Last Filed: 03/30/18 19:24>
[2018-03-31] MEDS: Dicyclomine 10 MG Capsule PO SCH ×2 (08:09→12:02)
[2018-03-31] MEDS: amLODIPine 5 MG Tablet PO SCH (08:09)
[2018-03-31] MEDS: Gabapentin 300 MG Capsule PO SCH ×2 (08:09→12:02)
[2018-03-31] MEDS: Simethicone 125 MG Chew Tablet PO SCH ×2 (08:10→12:02)
[2018-03-31] MEDS: Senna/Docusate Sodium 8.6/50 MG Tablet PO SCH (08:10)
[2018-03-31] MEDS: ALPRAZolam 0.5 MG Tablet PO SCH ×2 (08:10→12:02)
[2018-03-31] MEDS: Sodium Chloride 0.9% 2 ML Flush BID IV.FLUSH SCH (08:10)
[2018-03-31] MEDS: Metoprolol Tartrate 25 MG Tablet PO SCH (08:10)
[2018-03-31] MEDS: Folic Acid 1 MG Tablet PO SCH (08:10)
[2018-03-31] MEDS: Sod Chloride 0.9% Inj 1,000 ML IV.SIG SCH (10:15)
[2018-03-31] MEDS: Sucralfate 1 GM Tablet PO SCH (10:28)
[2018-03-31] MEDS: Magnesium Oxide 400 MG Tablet PO SCH (10:28)
--- NOTE | 2018-03-31 12:45 | P.PNNS ---
Subjective Interval history: Pt awake and alert. He is doing well. His back pain is controlled. He states he does have some pain extending into the left lateral thigh to the knee. He is ambulating. <Mikhail Lopez - Last Filed: 03/31/18 12:41> Physical Exam Vital signs: Vital Signs 03/30/18 16:00 03/30/18 20:00 03/31/18 00:00 Temperature 97.9 F 97.8 F 98.1 F Pulse Rate 76 67 67 Respiratory Rate 18 20 20 Blood Pressure 160/78 H 133/67 131/64 Pulse Oximetry 96 96 96 03/31/18 04:00 03/31/18 08:00 Temperature 97.9 F 97.9 F Pulse Rate 67 78 Respiratory Rate 20 16 Blood Pressure 129/67 145/76 H Pulse Oximetry 93 L 96 Intake & Output 03/30/18 03/31/18 03/31/18 18:59 06:59 18:59 Intake Total 1999 Balance 1999 Weight 81.8 kg Intake: IV 1000 / 1000 NS Inj 1,000 ML @ 30 mls/hr IV. 1000 / 1000 SIG .Q24H [facility] Rx#:[id number] Oral 1000 / 1000 Other: # Voids 4 2 Date of Last Bowel Movement 03/30/18 03/30/18 03/30/18 # Bowel Movements 2 - Constitutional no acute distress - Routine HEENT Exam Head: Present: normocephalic Eye: Present: PERRL - Routine Respiratory Exam Present: CTA bilaterally. Absent: respiratory distress, rhonchi, wheezes - Routine Cardiovascular Exam Present: RRR, S1, S2. Absent: murmur - Routine Abdominal Exam Present: soft, normoactive bowel sounds. Absent: distended, firm - Routine Skin Exam Absent: cyanosis, erythema Comments: Lumbar and thoracic bandages changed. No signs of infection. New bandage placed. - Routine Neurological Exam Present: alert, oriented X3, sensory deficit (Pt states hypersensitivity on bottom of the left foot is greatly improved.), motor deficit (3/5 EHL and dorsiflexion weakness. Otherwise 4+/5 strength in LEs.), moving all extremities , normal speech. Absent: altered mental status - Routine Psychiatric Exam Present: normal affect, cooperative. Absent: anxious - Urinary Catheter Management Indwelling Urethral Catheter Cath placed during this visit: yes, but has since been removed by the nurse Reason for continuing: Hourly intake/output Insertion date: 03/28/18 Insertion time: 08:50 Removal date: 03/29/18 Removal time: 06:00 <Mikhail Lopez - Last Filed: 03/31/18 12:41> Vital signs: Vital Signs 03/30/18 16:00 03/30/18 20:00 03/31/18 00:00 Temperature 97.9 F 97.8 F 98.1 F Pulse Rate 76 67 67 Respiratory Rate 18 20 20 Blood Pressure 160/78 H 133/67 131/64 Pulse Oximetry 96 96 96 03/31/18 04:00 03/31/18 08:00 03/31/18 12:00 Temperature 97.9 F 97.9 F 98.1 F Pulse Rate 67 78 67 Respiratory Rate 20 16 18 Blood Pressure 129/67 145/76 H 104/59 L Pulse Oximetry 93 L 96 95 Intake & Output 03/30/18 03/31/18 03/31/18 18:59 06:59 18:59 Intake Total 1999 Balance 1999 Weight 81.8 kg Intake: IV 1000 / 1000 NS Inj 1,000 ML @ 30 mls/hr IV. 1000 / 1000 SIG .Q24H [facility] Rx#:[id number] Oral 1000 / 1000 Other: # Voids 4 2 Date of Last Bowel Movement 03/30/18 03/30/18 03/30/18 # Bowel Movements 2 - Urinary Catheter Management Indwelling Urethral Catheter Cath placed during this visit: no <Lit Youssef - Last Filed: 03/31/18 14:02> Assessment and Plan - Assessment (1) Chronic low back pain with bilateral sciatica Code(s): M54.41 - Lumbago with sciatica, right side; M54.42 - Lumbago with sciatica, left side; G89.29 - Other chronic pain Status: Chronic (2) Lumbar degenerative disc disease Code(s): M51.36 - Other intervertebral disc degeneration, lumbar region Status : Chronic (3) Lumbar facet arthropathy Code(s): M47.816 - Spondylosis without myelopathy or radiculopathy, lumbar region Status: Acute (4) Spondylolisthesis, lumbar region Code(s): M43.16 - Spondylolisthesis, lumbar region Status: Chronic (5) Spinal fusion failure Code(s): T84.9XXA - Unspecified complication of internal orthopedic prosthetic device, implant and graft, initial encounter Status: Chronic (6) 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 P: Transfer to rehab Follow up in office as scheduled. Lumbar brace on when sitting, standing or walking. <Mikhail Lopez - Last Filed: 03/31/18 12:41> - Attending Attestation The exam, history, and the medical decision-making described in the above note were completed with the assistance of the mid-level provider. I reviewed and agree with the findings presented. I attest that I had a [id number] encounter with the patient on the same day, and personally performed and documented my assessment and findings in the medical record. <Lit Youssef - Last Filed: 03/31/18 14:02>
--- NOTE | 2018-03-31 13:20 | P.PN ---
Subjective Interval history: pain controlled low back painr adiating to left leg Physical Exam Vital signs: Vital Signs 03/30/18 16:00 03/30/18 20:00 03/31/18 00:00 Temperature 97.9 F 97.8 F 98.1 F Pulse Rate 76 67 67 Respiratory Rate 18 20 20 Blood Pressure 160/78 H 133/67 131/64 Pulse Oximetry 96 96 96 03/31/18 04:00 03/31/18 08:00 Temperature 97.9 F 97.9 F Pulse Rate 67 78 Respiratory Rate 20 16 Blood Pressure 129/67 145/76 H Pulse Oximetry 93 L 96 Intake & Output 03/30/18 03/31/18 03/31/18 18:59 06:59 18:59 Intake Total 1999 Balance 1999 Weight 81.8 kg Intake: IV 1000 / 1000 NS Inj 1,000 ML @ 30 mls/hr IV. 1000 / 1000 SIG .Q24H [facility] Rx#:[id number] Oral 1000 / 1000 Other: # Voids 4 2 Date of Last Bowel Movement 03/30/18 03/30/18 03/30/18 # Bowel Movements 2 Narrative: GENERAL: awake and alert, no distress HEENT: Normocephalic,Pupils equal, round and reactive. CARDIOVASCULAR: Regular rate and rhythm without murmurs, gallops, or rubs. RESPIRATORY: Clear to auscultation. No wheezes, rales, or rhonchi. Breathing is non-labored. GASTROINTESTINAL: Abdomen soft, non-tender, nondistended. BACK: Postop dressing appear clean and intact. EXTREMITIES: No lower extremity edema. NEURO: Alert and oriented x 3. - Urinary Catheter Management Indwelling Urethral Catheter Cath placed during this visit: yes, but has since been removed by the nurse Reason for continuing: Hourly intake/output Insertion date: 03/28/18 Insertion time: 08:50 Removal date: 03/29/18 Removal time: 06:00 Results - Labs CBC & Chem 7: 03/29/18 06:25 03/29/18 06:25 - Procedures 03/28 Lumbar L3-4 transforaminal interbody fusion; L3-4 pedicle screw fixation; L3-4 interbody cage placement; L4, L5, and S1 bilateral pedicle screw removal; exploration of L4-S1 fusion; L4, L5 and S1 posterolateral fusion; resection of posterior thoracic subcutaneous mass; microsurgical technique Assessment and Plan - Plan 72 years old male Degenerative disc disease S/p: Lumbar L3-4 transforaminal interbody fusion; L3-4 pedicle screw fixation; L3-4 interbody cage placement; L4, L5, and S1 bilateral pedicle screw removal; exploration of L4-S1 fusion; L4, L5 and S1 posterolateral fusion; resection of posterior thoracic subcutaneous mass; microsurgical technique 03/28. -management per neurosurgery. -pain control with a bowel regimen. -incentive spirometry. -rehab efforts. Alcohol abuse- no signs of DTs The pt endorses drinking four mini bottles of vodka daily. -cessation instruction. -CIWA protocol. Anxiety: - scheduled Xanax TID per his home dose. Nicotine dependance The pt smokes about a pack daily. -cessation instruction. - Nicotine patch if needed Hyperglycemia likely stress reaction. Resolved - A1c 5.9. PPx: Per surgery MOtivated with therapy DC planning - rehab for therapy
== END 2018-03-31 15:50 ==
LOC: HSDI 06:23 → N05 20:40
PROVIDERS: ADMIT Neurological Surgery; ATTEND Neurological Surgery
PROC: LAMPLIF (2018-03-28 08:40)